=== PATIENT | male | born 1935 | race African-American/Black ===

== ENCOUNTER 2017-12-09 19:51 | Inpatient (IN) | payer MEDICARE, MEDICAID ==
[~2017-12-09] VITALS: Ht 142.2 cm; Wt 54.9 kg
[~2017-12-09 19:51] MED LIST: ASPI-495 PO; ATOR10TA PO; CLON0.5T PO; DONE10TA14 PO; HALO0.5T4 PO; LEVE250T2 PO; MEMA5TAB PO; PIPE3.377 IV; TYL2T PO; VALS40TA4 PO
--- NOTE | 2017-12-09 20:00 | NUR ---
82 YO MALE BB AMB[facility]ANCE. PATIENT IS NON VERBAL AT THIS TIME, WITH PURPOSEFUL MOVEMENT NOTED AT THIS TIME. PATIENT WAS GOWNED,PLACED ON REEFER TRUCK DRIVER. SKIN WARM AND DRY, RESP EVEN AND UNLABORED. AWAITING ORDERS FROM PROVIDER, WILL CONTINUE TO XRBPT2X
[2017-12-09] MEDS ORDERED: TRAM50TA2 PO (20:07)
[2017-12-09] MEDS ORDERED: ESCI5TAB PO (20:07)
--- NOTE | 2017-12-09 20:15 | NUR ---
IN AND OUT GAMBOA CATH DONE, URINE SAMPLE OBTAINED AND SENT TO LAB
[2017-12-09] MEDS ORDERED: PIPERACILLIN /TAZOBACTAM 3.375 G VIAL IV ONE (20:17)
[2017-12-09] MEDS ORDERED: ACETAMINOPHEN 650 MG/SUPP.RECT RC ONE ×2 (20:17→20:30)
[2017-12-09] MEDS ORDERED: VANCOMYCIN 1 GM VIAL ONE (20:17)
--- NOTE | 2017-12-09 20:29 | NUR ---
PATIENT TRANSPORTED TO CT VIA GURNEY BY CHAPTER RELATIONS ADMINISTRATOR
[2017-12-09] MEDS ORDERED: VANCOMYCIN 1 GM in IV D5W 250 ML IV ONE (20:30)
[2017-12-09] MEDS ORDERED: IV NS 0.9% 1,000 ML BAG IV ONE (20:30)
[2017-12-09] MEDS ORDERED: PIPERACILLIN /TAZOBACTAM 3.375 G in IV D5W 50 ML IV ONE (20:30)
--- NOTE | 2017-12-09 20:32 | NUR ---
MEDICATED PT ORDERED
[2017-12-09 20:38] LABS: CARBON DIOXIDE 29 mmol/L (21-32); CHLORIDE 103 mmol/L (98-107); CREATININE 0.7 mg/dL (0.6-1.3); GLUCOSE 113 mg/dL (74-106); POTASSIUM 3.8 mmol/L (3.5-5.1); SODIUM SERUM 138 mmol/L (136-145); UREA NITROGEN, BLOOD 15 mg/dL (7-18)
[2017-12-09 20:40] LABS: INR 0.96 (0.85-1.15)
[2017-12-09 20:40] LABS: APPEARANCE,URINE SL CLOUDY (CLEAR); BILIRUBIN,URINE NEGATIVE (NEGATIVE); BLOOD, URINE NEGATIVE Ery/uL (NEGATIVE); COLOR,URINE YELLOW (YELLOW); KETONES,URINE NEGATIVE (NEGATIVE); LEUKOCYTE ESTERASE ,URINE NEGATIVE (NEGATIVE); NITRITE, URINE NEGATIVE (NEGATIVE); PH,URINE 6.5 (5.0-8.0); PROTEIN,URINE NEGATIVE (NEGATIVE); UGLUCOSE NEGATIVE (NEGATIVE)
[2017-12-09 20:43] LABS: ALANINE AMINOTRANSFERASE 16 U/L (12-78); ALBUMIN 3.2 g/dL (3.4-5.0); ALKALINE PHOSPHATASE 60 U/L (46-116); ASPARTATE AMINOTRANSFERASE 13 U/L (15-37); BILIRUBIN,DIRECT 0.1 mg/dL (0.0-0.2); BILIRUBIN,TOTAL 0.4 mg/dL (0.2-1.0); TOTAL PROTEIN, SERUM 7.6 g/dL (6.4-8.2)
[2017-12-09 20:46] LABS: TROPONIN I < 0.017 ng/mL (0.00-0.056)
[2017-12-09 21:03] LABS: BASOPHILS # (AUTO) 0.1 /CMM (0.0-0.2); BASOPHILS % (AUTO) 0.9 % (0.0-2.0); EOSINOPHILS % (AUTO) 5.9 % (0.0-6.0); HEMATOCRIT 37 % (39-51); HEMOGLOBIN 11.9 g/dL (13.5-17.5); LYMPHOCYTES % (AUTO) 26.2 % (20.0-44.0); MEAN CORPUSCULAR HGB CONC 32 g/dl (31.0-36.0); MEAN CORPUSCULAR VOLUME 72 fL (80-96); MONOCYTES # (AUTO) 0.5 /CMM (0.1-1.30); MONOCYTES % (AUTO) 6.5 % (2.0-12.0); NEUTROPHILS # (AUTO) 4.5 /CMM (1.8-8.9); NEUTROPHILS % (AUTO) 60.5 % (43.0-81.0); PLATELET COUNT (AUTO) 231 /CMM (150-450); RDW COEFFICIENT OF VARIATION 16.3 (11.5-15.0); RED BLOOD CELL COUNT(AUTO) 5.19 MIL/uL (4.5-6.0); WHITE BLOOD COUNT (AUTO) 7.4 K/uL (4.3-11.0)
--- NOTE | 2017-12-09 21:06 | NUR ---
CALLED NURSING SUP. FOR TELE BED
[2017-12-09 21:23] LABS: BACTERIA,URINE Many /HPF (None Seen); RBC,URINE NONE SEEN /HPF (0-2); SQUAMOUS EPITHELIAL CELL,UR Few /HPF (None Seen)
[2017-12-09 21:30] LABS: BAND % (MANUAL) 1 % (0.0-5.0); BASOPHILS % (MANUAL) 0 % (0.0-2.0); EOSINOPHILS % (MANUAL) 5 % (0-4); LYMPHOCYTES % (MANUAL) 33 % (16-48); MONOCYTES % (MANUAL) 7 % (0-11.0); NEUTROPHILS % (MANUAL) 54 (42-76)
--- NOTE | 2017-12-09 21:44 | NUR ---
TRANSPORTED PT TO TELE BED WITHOUT INCIDENT
[2017-12-09] MEDS ORDERED: IV NS 0.9% 1,000 ML IV PRN (21:50)
[2017-12-09 22:00] VITALS: BP 178/94
[2017-12-09] MEDS ORDERED: ACETAMINOPHEN 325 MG TABLET PO PRN (22:00)
[2017-12-09] MEDS ORDERED: MAGNESIUM HYDROXIDE 30 ML UDC PO PRN (22:00)
[2017-12-09] MEDS ORDERED: TEMAZEPAM 7.5 MG CAPSULE PO PRN (22:00)
[2017-12-09] MEDS ORDERED: ENOXAPARIN SODIUM 30 MG/0.3 ML DISP.SYRIN SQ SCH ×2 (22:00→22:26)
[2017-12-09] MEDS ORDERED: HYDROCODONE/APAP 10/325MG 1 EA TABLET PO PRN (22:00)
[2017-12-09] MEDS ORDERED: HYDROCODONE/APAP 5/325MG 1 EACH TABLET PO PRN (22:00)
[2017-12-09] MEDS ORDERED: ONDANSETRON HCL/PF 4 MG/2 ML VIAL IVP PRN (22:00)
[2017-12-09] MEDS ORDERED: MAG HYDROX/AL HYDROX/SIMETH 30 ML UDC PO PRN (22:00)
[2017-12-09 22:30] VITALS: BP 161/81
--- NOTE | 2017-12-09 22:35 | NUR ---
RN OPENING NOTES RECEIVED PATIENT FROM ER WITH DX OF ACUTE ENCEPHALOPATHY AND FACIAL CELLULITIS, ALERT AND ORIENTED X1, CONFUSED, ABLE TO ANSWER SIMPLE QUESTIONS, NO SOB, ON ROOM AIR, SPO2 98%, ON AUSCULTATION, LUNG SOUNDS ARE CLEAR, DENIES ANY PAIN AT THIS TIME, ABDOMEN SOFT AND NON-TENDER, BOWEL SOUNDS TO ALL QUADRANTS, UNABLE TO DRINK USING STRAW, PER HX HAS DYSPHAGIA, ORDERED ST EVAL, CRUSHED MEDS FOR PRECAUTION, SKIN ASSESSMENT IS NEGATIVE, EXCEPT FOR RIGHT EYEBROW LACERATION WITH STITCHES AND NOSE LACERATION WITH STITCHES, NO BLEEDING ON BOTH, RIGHT WRIST PERIPHERAL LINE IS PATENT AND INFUSING SELL, INCONTINENT OF BOWEL AND BLADDER, VOIDING WITHOUT DIFFICULTY, WITH PERIODS OF CONFUSION. KEPT SAFE AND COMFORTABLE, CALL LIGHT WITHIN REACH.
[2017-12-10] VITALS: BP 129/58
[2017-12-10] MEDS ORDERED: TRAMADOL HCL 50 MG TABLET PO PRN
[2017-12-10] MEDS ORDERED: ACETAMINOPHEN 325 MG TABLET PO PRN
[2017-12-10] MEDS: VALSARTAN 40 MG TABLET PO SCH ×2 (00:59→23:12)
[2017-12-10] MEDS: ASPIRIN EC 81 MG TABLET.DR PO SCH ×2 (01:00→23:12)
[2017-12-10] MEDS ORDERED: PIPERACILLIN /TAZOBACTAM 3.375 G VIAL IV ONE (05:06)
[2017-12-10] MEDS: PIPERACILLIN /TAZOBACTAM 3.375 G in IV D5W 50 ML IV SCH ×4 (05:18→23:12)
--- NOTE | 2017-12-10 07:01 | NUR ---
RN NOTES PATIENT IS ALERT AND AWAKE, WITH EPISODES OF CONFUSION, ABLE TO ANSWER SIMPLE QUESTIONS, NO COMPLAIN OF PAIN, NO DISTRESS, SP02 AT ROOM AIR 97%, V/S WNL, INCONTINENT OF BOWEL AND BLADDER, S/P FALL WITH LACERATION TO RIGHT EYEBROW AND NOSE, ALL DUE MEDICATIONS GIVEN, CALL LIGHT WITHIN REACH.
[2017-12-10 07:12] LABS: BASOPHILS # (AUTO) 0.1 /CMM (0.0-0.2); BASOPHILS % (AUTO) 0.8 % (0.0-2.0); EOSINOPHILS % (AUTO) 4.9 % (0.0-6.0); HEMATOCRIT 38 % (39-51); HEMOGLOBIN 11.9 g/dL (13.5-17.5); LYMPHOCYTES # (AUTO) 1.8 /CMM (0.8-4.8); LYMPHOCYTES % (AUTO) 17.8 % (20.0-44.0); MEAN CORPUSCULAR HGB CONC 31 g/dl (31.0-36.0); MEAN CORPUSCULAR VOLUME 73 fL (80-96); MONOCYTES # (AUTO) 0.5 /CMM (0.1-1.30); MONOCYTES % (AUTO) 5.4 % (2.0-12.0); NEUTROPHILS % (AUTO) 71.1 % (43.0-81.0); PLATELET COUNT (AUTO) 228 /CMM (150-450); RDW COEFFICIENT OF VARIATION 16.3 (11.5-15.0); RED BLOOD CELL COUNT(AUTO) 5.21 MIL/uL (4.5-6.0); WHITE BLOOD COUNT (AUTO) 9.9 K/uL (4.3-11.0)
--- NOTE | 2017-12-10 07:25 | NUR ---
MS RN OPENING NOTES RECEIVED PATIENT AWAKE IN BED IN NO ACUTE SIGNS OF DISTRESS. A/O X1-2. NO SIGNS OF PAIN LIKE FACIAL GRIMACES OR RESTLESSNESS OBSERVED AT THIS TIME. ON ROOM AIR, TOLERATING WELL WITH NO SOB NOTED. IV ACCESS ON RIGHT WRIST INTACT AND PATENT WITH IVF OF NS @ 75ML/HR INFUSING , NO SIGNS OF INFILTRATION NOTED. BED IN LOW/LOCKED POSITION WITH SIDE RAILS UP APPROPRIATE. CALL LIGHT WITHIN REACH. ALL SAFETY MEASURES MAINTAINED. WILL CONTINUE TO MONITOR PT ACCORDINGLY..
[2017-12-10 07:34] LABS: CALCIUM, SERUM 8.4 mg/dL (8.5-10.1); CARBON DIOXIDE 31 mmol/L (21-32); CHLORIDE 109 mmol/L (98-107); CREATININE 0.8 mg/dL (0.6-1.3); GLUCOSE 101 mg/dL (74-106); MAGNESIUM 2.2 mg/dL (1.8-2.4); PHOSPHORUS 3.1 mg/dL (2.5-4.9); POTASSIUM 4.1 mmol/L (3.5-5.1); SODIUM SERUM 148 mmol/L (136-145); UREA NITROGEN, BLOOD 10 mg/dL (7-18)
[2017-12-10 07:41] LABS: CHOLESTEROL 127 mg/dL (<200); HDL CHOLESTEROL 50 mg/dL (40-60); LDL 79 mg/dL (0-99); TRIGLYCERIDES 44 mg/dL (30-150)
[2017-12-10] MEDS ORDERED: FEE PK DOSING 1 MIN EA MC ONE (07:57)
[2017-12-10 08:00] VITALS: BP 156/80
[2017-12-10] MEDS: ESCITALOPRAM OXALATE (10 MG) 10 MG TABLET PO SCH (08:13)
[2017-12-10] MEDS: PANTOPRAZOLE 40 MG TABLET.DR PO SCH (08:14)
[2017-12-10] MEDS: LEVETIRACETAM (250 MG) 250 MG TABLET PO SCH ×2 (08:14→16:30)
[2017-12-10] MEDS: MEMANTINE HCL 5 MG TABLET PO SCH ×2 (08:14→16:30)
[2017-12-10] MEDS: VANCOMYCIN 500 MG in IV NS 0.9% 100 ML IV SCH ×2 (08:27→21:10)
[2017-12-10] MEDS ORDERED: ENOXAPARIN SODIUM 30 MG/0.3 ML DISP.SYRIN SQ SCH (08:52)
[2017-12-10] MEDS: ENOXAPARIN SODIUM 30 MG/0.3 ML DISP.SYRIN SQ SCH (09:30)
--- NOTE | 2017-12-10 13:12 | NUR ---
RN NOTES IV ACCESS ON RIGHT WRIST DISLODGED WITH MINIMAL BLEEDING NOTED. PRESSURE GAUZE APPLIED AND TAPED. NEW IV LINE INSERTED TO RFA G#22 AND SECURED WITH TAPE. WILL CONTINUE TO MONITOR.
[2017-12-10 16:00] VITALS: BP 158/76
--- NOTE | 2017-12-10 18:38 | NUR ---
MS RN CLOSING NOTES PATIENT IN BED AWAKE, ALERT AND ORIENTED X1-2. VERBALLY RESPONSIVE WITH EPISODES OF CONFUSION AND FORGETFULNESS NOTED. ON ROOM AIR, TOLERATING WELL WITH NO SOB NOTED. IV ACCESS ON RIGHT ARM G#22 INTACT AND PATENT, FLUSHES EASILY. ALL SAFETY MEASURES MAINTAINED. HOB KEPT ELEVATED. BED IN LOW/LOCKED POSITION WITH SIDE RAILS UP APPROPRIATE. CALL LIGHT WITHIN REACH. ALL NEEDS AND CARE PROVIDED WELL. WILL ENDORSE TO BILL RECAPITULATION CLERK NURSE FOR CYNDI.
--- NOTE | 2017-12-10 19:00 | NUR ---
MS RN OPENING NOTE RECEIVE PATIENT IS RESTING IN BED, A/O X 1-2 NO FACIAL GRIMACING NOTED FOR PAIN. NO SOB OR DISTRESS NOTED, CALL LIGHT WITHIN REACH. SAFETY MEASURES IMPLEMENTED. WILL CONTINUE TO MONITOR THROUGHOUT SHIFT.
[2017-12-10 20:00] VITALS: BP 144/76
[2017-12-10] MEDS: ATORVASTATIN 10 MG TABLET PO SCH (21:11)
[2017-12-11] MEDS: PIPERACILLIN /TAZOBACTAM 3.375 G in IV D5W 50 ML IV SCH ×4 (05:16→23:54)
--- NOTE | 2017-12-11 06:25 | NUR ---
MS RN CLOSING NOTES PT COMFORTABLY ASLEEP AND EASILY AWAKEN, TOLERATING ROOM AIR 96% IN STABLE CONDITION. RESPIRATION EVEN AND UNLABORED. KEPT CLEAN AND DRY AND COMFORTABLE, ALL NURSING CARE RENDERED. NEEDS ATTENDED AND ANTICIPATED, GOOD SKIN CARE PROVIDED. REPOSITIONED EVERY 2 HOURS FOR SKIN MANAGEMENT. FREQUENT VISUAL CHECK DONE FOR SAFETY EVERY 2 HOURS. ON LOW BED AT ALL TIMES TO ENSURE SAFETY. SAFE HAZARD FREE ENVIRONMENT PROVIDED. NO COMPLAINS OF PAIN. CALL LIGHT WITHIN EASY TO REACH. WILL ENDORSE NEXT SHIFT CONTINUITY OF CARE.
[2017-12-11 06:59] LABS: CALCIUM, SERUM 8.2 mg/dL (8.5-10.1); CARBON DIOXIDE 30 mmol/L (21-32); CHLORIDE 106 mmol/L (98-107); CREATININE 0.9 mg/dL (0.6-1.3); GLUCOSE 101 mg/dL (74-106); POTASSIUM 3.5 mmol/L (3.5-5.1); SODIUM SERUM 143 mmol/L (136-145); UREA NITROGEN, BLOOD 13 mg/dL (7-18)
[2017-12-11 08:00] VITALS: BP 146/64
[2017-12-11] MEDS: PANTOPRAZOLE 40 MG TABLET.DR PO SCH (08:13)
[2017-12-11] MEDS: LEVETIRACETAM (250 MG) 250 MG TABLET PO SCH ×2 (09:31→17:53)
[2017-12-11] MEDS: ESCITALOPRAM OXALATE (10 MG) 10 MG TABLET PO SCH (09:31)
[2017-12-11] MEDS: MEMANTINE HCL 5 MG TABLET PO SCH ×2 (09:32→17:52)
[2017-12-11] MEDS: VANCOMYCIN 500 MG in IV NS 0.9% 100 ML IV SCH ×2 (09:34→21:07)
[2017-12-11] MEDS: ENOXAPARIN SODIUM 30 MG/0.3 ML DISP.SYRIN SQ SCH (09:44)
[2017-12-11 16:00] VITALS: BP 155/82
[2017-12-11] MEDS: NEOMY SULF/BACITRAC ZN/POLY 15 GM TUBE TP SCH (17:54)
[2017-12-11 18:18] VITALS: BP 140/73
--- NOTE | 2017-12-11 19:10 | NUR ---
RN CLOSING NOTES: PATIENT RESTING IN BED. NONLABORED BREATHING NOTED ON ROOM AIR. NO FACIAL GRIMACING NOTED. PATIENT AOX1, CONFUSED. IV SITE ON RIGHT FA PATIENT AND INTACT. PATIENT AFEBRILE DURING SHIFT. PATIENT TURNED AND REPOSITIONED EVERY 2 HOURS, KEPT CLEAN AND DRY. ASPIRATION AND FALL PRECAUTIONS IMPLEMENTED DURING SHIFT. NO SEIZURES NOTED DURING SHIFT WOUND CARE DONE DURING SHIFT. ENDORSED TO NEXT SHIFT
--- NOTE | 2017-12-11 19:20 | NUR ---
MS RN OPENING NOTES RECEIVED PATIENT AWAKE IN BED, NO ACUTE SIGNS OF DISTRESS. A/O X 1, CONFUSED. NO SIGNS OF PAIN LIKE FACIAL GRIMACES OR RESTLESSNESS OBSERVED AT THIS TIME. ON ROOM AIR, TOLERATING WELL WITH NO SOB NOTED. IV ACCESS ON RIGHT FOREARM, INTACT & PATENT, SL. NO SIGNS OF INFILTRATION NOTED. BED IN LOW/LOCKED POSITION WITH SIDE RAILS UP APPROPRIATE. CALL LIGHT WITHIN REACH. ALL SAFETY MEASURES MAINTAINED. WILL CONTINUE TO MONITOR PT ACCORDINGLY.
[2017-12-11 20:00] VITALS: BP 130/64
[2017-12-11] MEDS: ATORVASTATIN 10 MG TABLET PO SCH (21:32)
[2017-12-11] MEDS: VALSARTAN 40 MG TABLET PO SCH (23:54)
[2017-12-11] MEDS: ASPIRIN EC 81 MG TABLET.DR PO SCH (23:54)
[2017-12-12] MEDS: PIPERACILLIN /TAZOBACTAM 3.375 G in IV D5W 50 ML IV SCH ×3 (05:24→17:05)
--- NOTE | 2017-12-12 06:28 | NUR ---
MS RN CLOSING NOTES PATIENT SLEPT WELL @ NIGHT. NO ACUTE SIGNS OF DISTRESS. A/O X 1, CONFUSED. NO SIGNS OF PAIN LIKE FACIAL GRIMACES OR RESTLESSNESS OBSERVED @ THIS TIME. ON ROOM AIR, TOLERATING WELL WITH NO SOB NOTED. IV ACCESS ON RIGHT FOREARM, INTACT & PATENT, SL. TURNED/REPOSITIONED PER PROTOCOL. KEPT CLEAN & DRY MUCH POSSIBLE. NO SIGNS OF INFILTRATION NOTED. BED IN LOW/LOCKED POSITION WITH SIDE RAILS UP APPROPRIATE. CALL LIGHT WITHIN REACH. ALL SAFETY MEASURES MAINTAINED. WILL ENDORSE TO AM RN FOR CONTINUITY OF CARE.
[2017-12-12 07:43] LABS: BASOPHILS % (AUTO) 0.2 % (0.0-2.0); EOSINOPHILS % (AUTO) 5.5 % (0.0-6.0); HEMATOCRIT 36 % (39-51); HEMOGLOBIN 11.5 g/dL (13.5-17.5); LYMPHOCYTES # (AUTO) 1.4 /CMM (0.8-4.8); LYMPHOCYTES % (AUTO) 16.7 % (20.0-44.0); MEAN CORPUSCULAR HGB CONC 32 g/dl (31.0-36.0); MEAN CORPUSCULAR VOLUME 72 fL (80-96); MONOCYTES # (AUTO) 0.5 /CMM (0.1-1.30); MONOCYTES % (AUTO) 5.8 % (2.0-12.0); NEUTROPHILS % (AUTO) 71.8 % (43.0-81.0); PLATELET COUNT (AUTO) 237 /CMM (150-450); RDW COEFFICIENT OF VARIATION 16.1 (11.5-15.0); RED BLOOD CELL COUNT(AUTO) 4.99 MIL/uL (4.5-6.0); WHITE BLOOD COUNT (AUTO) 8.4 K/uL (4.3-11.0)
[2017-12-12 08:00] VITALS: BP 143/69
[2017-12-12] MEDS: PANTOPRAZOLE 40 MG TABLET.DR PO SCH (08:00)
[2017-12-12 08:12] LABS: CARBON DIOXIDE 28 mmol/L (21-32); CHLORIDE 107 mmol/L (98-107); CREATININE 0.9 mg/dL (0.6-1.3); GLUCOSE 92 mg/dL (74-106); POTASSIUM 3.3 mmol/L (3.5-5.1); SODIUM SERUM 142 mmol/L (136-145); UREA NITROGEN, BLOOD 16 mg/dL (7-18)
--- NOTE | 2017-12-12 08:42 | NUR ---
RN NOTES: PATIENT RESTING IN BED. NONLABORED BREATHING NOTED ON ROOM AIR. NO FACIAL GRIMACING NOTED. PATIENT AOX1, CONFUSED. IV SITE ON RIGHT FA PATIENT AND INTACT. PATIENT AFEBRILE DURING SHIFT. PATIENT TURNED AND REPOSITIONED EVERY 2 HOURS, KEPT CLEAN AND DRY. ASPIRATION AND FALL PRECAUTIONS IMPLEMENTED DURING SHIFT. ENDORSED TO SARAH TELLO FOR CONTINUATION OF CARE
--- NOTE | 2017-12-12 08:45 | NUR ---
MS RN NOTE RECEIVED REPORT FROM ELISHA SCHOFIELD. WILL CONTINUE CONTINUITY OF CARE FOR PATIENT. PATIENT RESTING AT THIS TIME. WILL CONTINUE TO MONITOR.
[2017-12-12] MEDS: ESCITALOPRAM OXALATE (10 MG) 10 MG TABLET PO SCH (09:01)
[2017-12-12] MEDS: VANCOMYCIN 500 MG in IV NS 0.9% 100 ML IV SCH (09:01)
[2017-12-12] MEDS: LEVETIRACETAM (250 MG) 250 MG TABLET PO SCH ×2 (09:01→17:05)
[2017-12-12] MEDS: MEMANTINE HCL 5 MG TABLET PO SCH ×2 (09:02→17:05)
[2017-12-12] MEDS: ENOXAPARIN SODIUM 30 MG/0.3 ML DISP.SYRIN SQ SCH (09:04)
[2017-12-12] MEDS: NEOMY SULF/BACITRAC ZN/POLY 15 GM TUBE TP SCH (09:05)
[2017-12-12] MEDS ORDERED: POTASSIUM CHLORIDE 20 MEQ TAB.PRT.SR PO SCH (10:30)
[2017-12-12 15:54] VITALS: BP 137/72
[2017-12-12] MEDS ORDERED: LACTOBACILLUS RHAMNOSUS GG 1 EACH CAP.SPRINK PO SCH (17:00)
--- NOTE | 2017-12-12 18:36 | NUR ---
MS RN CLOSING NOTE PATIENT IS RESTING COMFORTABLE AT THIS TIME IN BED LOCKED IN LOWEST POSITION. ALL DUE MEDICATIONS GIVEN ORDERED. ALL NURSING CARE NEEDS ATTENDED TO NEEDED. . ABLE TO COMMUNICATE NEEDS. WOUND VAC INTACT RUNNING AT 125 MMHG. NO PAIN AT THIS TIME. NO SOB OR DISTRESS NOTED. LABS IN AM. WILL ENDORSE TO AIRCRAFT ENGINE MECHANIC OVERHAUL NURSE FOR CYNDI DISCHARGE NOTE: REPORT GIVEN TO GÉNESIS RN FOCUSER AT [facility]- . ALL DISCHARGE INSTRUCTIONS GIVEN TO RN, ALL INSTRUCTIONS RECEIVED BACK. PRESCRIPTION TO BE GIVEN TO RN FOCUSER FOR ANTIBIOTIC THERAPY x14 DAYS. INFORMED KELSY-SISTER AND DOROTHY-SON ABOUT PATIENT TRANSFER. BELONGINGS LIST ACCOUNTED FOR AND SKIN DOCUMENTATION IN CHART. WILL ENDORSE TO AIRCRAFT ENGINE MECHANIC OVERHAUL NURSE FOR CYNDI
--- NOTE | 2017-12-12 19:35 | NUR ---
MS RN OPENING NOTES RECEIVED PATIENT AWAKE IN BED, NO ACUTE SIGNS OF DISTRESS. A/O X 1, CONFUSED. NO SIGNS OF PAIN LIKE FACIAL GRIMACES OR RESTLESSNESS OBSERVED AT THIS TIME. ON ROOM AIR, TOLERATING WELL WITH NO SOB NOTED. PT TO BE PICKED UP BY TRANSPORTATION, [facility] PER AM RN REPORT. REPORT WAS GIVEN TO GÉNESIS @[facility] BY AM RN. VSS 133/73, 74, 18, 98.3, 97 % @ RA. HAD BM X 1 TODAY. KEPT THE PT CLEAN & DRY. BED IN LOW/LOCKED POSITION WITH SIDE RAILS UP APPROPRIATE. CALL LIGHT WITHIN REACH. ALL SAFETY MEASURES MAINTAINED. WILL CONTINUE TO MONITOR PT ACCORDINGLY.
[2017-12-12 19:40] VITALS: BP 133/73
--- NOTE | 2017-12-12 20:20 | NUR ---
DISCHARGE NOTE TRANSPORTATION ARRIVED, PT IN STABLE CONDITION, VS STABLE @ THIS TIME, CHECKED BY AMBULANCE PERSON. IV CATH & ID BAND REMOVED. REPORT & ALL INSTRUCTIONS GIVEN TO EMT'S. BELONGING LIST REVIEWED BY YASMINE. AWARE. PT DISCHARGED IN STABLE CONDITION TO SNF. FAMILY WAS MADE AWARE BY AM SHIFT RN.
== END 2017-12-12 20:20 | DRG 602 ==
LOC: ER 19:53 → TELE 21:42 → MED 12-10 06:24
PROVIDERS: ADMIT Nurse Practitioner Acute Care; ATTEND Nurse Practitioner Acute Care
DX: L03.211 Cellulitis of face (principal); R53.2 Functional quadriplegia; G92 Toxic encephalopathy; E44.0 Moderate protein-calorie malnutrition; I50.32 Chronic diastolic (congestive) heart failure; D68.59 Other primary thrombophilia; E87.0 Hyperosmolality and hypernatremia; I11.0 Hypertensive heart disease with heart failure; D63.8 Anemia in other chronic diseases classified elsewhere; F03.90 Unspecified dementia, unspecified severity, without behavioral disturbance, psychotic disturbance, mood disturbance, and anxiety; I70.90 Unspecified atherosclerosis; G40.909 Epilepsy, unspecified, not intractable, without status epilepticus; E78.00 Pure hypercholesterolemia, unspecified; E66.9 Obesity, unspecified; Z68.27 Body mass index [BMI] 27.0-27.9, adult; N40.0 Benign prostatic hyperplasia without lower urinary tract symptoms; K21.9 Gastro-esophageal reflux disease without esophagitis; F32.9 Major depressive disorder, single episode, unspecified; Z87.440 Personal history of urinary (tract) infections; Z86.73 Personal history of transient ischemic attack (TIA), and cerebral infarction without residual deficits; I25.10 Atherosclerotic heart disease of native coronary artery without angina pectoris; F07.81 Postconcussional syndrome
CPT/HCPCS: 36415; 70450-TC; 71045-TC; 80048-TC; 80061-TC; 80076-TC; 80202-TC; 81000-TC; 83605-TC; 83735-TC; 84100-TC; 84484-TC; 85025-TC; 85730-TC; 87040-TC; 87081-TC; 87086-TC; 92521; A4606; J1650; J2543; J3370; J7030; J7060; Z7610

== ENCOUNTER 2018-06-15 19:14 | Emergency (ER) | payer MEDICARE, MEDICAID ==
[~2018-06-15] VITALS: Ht 157.5 cm; Wt 57.2 kg
[~2018-06-15 19:14] MED LIST changes: -CLON0.5T PO; -DONE10TA14 PO; +ESCI5TAB PO; -HALO0.5T4 PO; -PIPE3.377 IV; +TRAM50TA2 PO
--- NOTE | 2018-06-15 19:20 | NUR ---
PT [id number] FROM [facility], PRESENTS W/ L EYEBROW LACERATION S/P SLID OFF WHEELCHAIR, PT AAOX1-2, FOLLOWS SIMPLE DIRECTIONS, DENIES PAIN OR DISCOMFORT, PUPILS EQUAL AND REACTIVE TO LIGHT, NO C/O DIZZINESS, NO N/V NOTED, RESPIRATIONS EVEN AND UNLABORED, NO SOB, VSS, AWAITING MD TABARES
[2018-06-15] MEDS ORDERED: TDAP [DIPH/PERTUSSIS/TET] 0.5 ML VIAL IM ONE ×2 (20:00→20:01)
[2018-06-15] MEDS ORDERED: LIDOCAINE 1%-EPI 1:100,000 20 ML VIAL ONE (20:30)
--- NOTE | 2018-06-15 21:40 | NUR ---
DR WARD AT BEDSIDE FOR SUTURE ON LEFT EYEBROW LAC
--- NOTE | 2018-06-15 21:53 | NUR ---
CALLED [facility] FOR TRANSPORT ETA OF [phone] WAS GIVEN. TRIP#[id number]
--- NOTE | 2018-06-15 22:09 | NUR ---
CALLED [facility] FOR REPORT, SPOKE TO RN DOOR AND ARRIVAL ATTENDANT JOEL
[2018-06-15] MEDS ORDERED: ACETAMINOPHEN ES 500 MG TABLET ONE (23:38)
[2018-06-15] MEDS ORDERED: CLONIDINE HCL 0.1 MG TABLET ONE (23:51)
[2018-06-16] MEDS ORDERED: CLONIDINE HCL 0.1 MG TABLET PO ONE
[2018-06-16] MEDS ORDERED: ACETAMINOPHEN ES 500 MG TABLET PO ONE
[2018-06-16 00:11] VITALS: BP 176/78
--- NOTE | 2018-06-16 00:22 | NUR ---
PT LEFT VIA AMBULANCE VIA GURNEY WITH 2 HEALTH INSPECTOR. VSS, RESP EVEN AND UNLABORED, NAD NOTED, ALL BELONGING AND PAPERWORK WITH PRIVATE AMBULANCE STAFF
== END 2018-06-16 00:25 ==
LOC: ER 19:17
DX: S01.112A Laceration without foreign body of left eyelid and periocular area, initial encounter (principal); G40.909 Epilepsy, unspecified, not intractable, without status epilepticus; I10 Essential (primary) hypertension; E11.9 Type 2 diabetes mellitus without complications; E78.5 Hyperlipidemia, unspecified; Z79.82 Long term (current) use of aspirin; Z79.899 Other long term (current) drug therapy; W01.0XXA Fall on same level from slipping, tripping and stumbling without subsequent striking against object, initial encounter; W05.0XXA Fall from non-moving wheelchair, initial encounter; Y93.89 Activity, other specified; Y92.89 Other specified places as the place of occurrence of the external cause; Y99.8 Other external cause status
CPT/HCPCS: 70450-TC; 72125-TC; 82962-TC; 90715; A4606; A6402; J3490; Z7610

== ENCOUNTER 2019-01-02 23:46 | Inpatient (IN) | payer MEDICARE, MEDICAID ==
[~2019-01-02] VITALS: Ht 165.1 cm; Wt 53.1 kg
--- NOTE | 2019-01-02 23:50 | NUR ---
PT PHOEBE FROM [facility] C/C WEAKNESS. SENT BY MD FOR PNA FURTHER EVAL, PT IS AAOX0, BUT RESPOND TO VOICE, NOT IN RESPIRATORY DISTRESS, HOOKED TO MONITOR, KEPT RESTED AND COMFORTABLE, WILL CONTINUE TO MONITOR.
--- NOTE | 2019-01-03 00:03 | NUR ---
SEEN AND EXAMINED BY DR. WALTON.
--- NOTE | 2019-01-03 00:05 | NUR ---
IV LINE ESTABLISHED, BLOOD DRAWNED AND SENT TO LAB.
[2019-01-03 00:18] LABS: MONOCYTES # (AUTO) 0.5 /CMM (0.1-1.30)
[2019-01-03 00:24] LABS: BASOPHILS % (AUTO) 0.2 % (0.0-2.0); EOSINOPHILS % (AUTO) 1.1 % (0.0-6.0); HEMATOCRIT 37 % (39-51); HEMOGLOBIN 11.6 g/dL (13.5-17.5); LYMPHOCYTES # (AUTO) 1.6 /CMM (0.8-4.8); LYMPHOCYTES % (AUTO) 10.3 % (20.0-44.0); MEAN CORPUSCULAR HGB CONC 31 g/dl (31.0-36.0); MEAN CORPUSCULAR VOLUME 71 fL (80-96); MONOCYTES % (AUTO) 3.4 % (2.0-12.0); NEUTROPHILS # (AUTO) 13.2 /CMM (1.8-8.9); PLATELET COUNT (AUTO) 243 /CMM (150-450); RED BLOOD CELL COUNT(AUTO) 5.24 MIL/uL (4.5-6.0); WHITE BLOOD COUNT (AUTO) 15.6 K/uL (4.3-11.0)
[2019-01-03 00:26] LABS: CALCIUM, SERUM 8.4 mg/dL (8.5-10.1); CARBON DIOXIDE 33 mmol/L (21-32); CHLORIDE 106 mmol/L (98-107); CREATININE 0.9 mg/dL (0.6-1.3); GLUCOSE 109 mg/dL (74-106); SODIUM SERUM 144 mmol/L (136-145); UREA NITROGEN, BLOOD 21 mg/dL (7-18)
--- NOTE | 2019-01-03 00:28 | NUR ---
FOLLEY CATH INSERTED, URINE SAMPLE COLLECTED AND SENT TO LAB
[2019-01-03 00:32] LABS: ALANINE AMINOTRANSFERASE 16 U/L (12-78); ALBUMIN 3.1 g/dL (3.4-5.0); ALKALINE PHOSPHATASE 74 U/L (46-116); ASPARTATE AMINOTRANSFERASE 11 U/L (15-37); BILIRUBIN,DIRECT 0.1 mg/dL (0.0-0.2); BILIRUBIN,TOTAL 0.4 mg/dL (0.2-1.0); TOTAL PROTEIN, SERUM 7.3 g/dL (6.4-8.2)
--- NOTE | 2019-01-03 00:33 | NUR ---
FOREST RESOURCES PROFESSOR AT BEDSIDE FOR XRAY.
[2019-01-03 00:35] LABS: APPEARANCE,URINE Clear (CLEAR); BILIRUBIN,URINE Negative (NEGATIVE); BLOOD, URINE Moderate Ery/uL (NEGATIVE); COLOR,URINE Dark (YELLOW); KETONES,URINE Trace (NEGATIVE); LEUKOCYTE ESTERASE ,URINE Negative (NEGATIVE); NITRITE, URINE Negative (NEGATIVE); PROTEIN,URINE Trace mg/dl (NEGATIVE); UGLUCOSE Negative (NEGATIVE)
[2019-01-03] MEDS ORDERED: Magnesium 1GM/D5W 100ML PREMIX 100 ML IV SCH (01:00)
[2019-01-03] MEDS: POTASSIUM CL. PREMIX PERIPHER. 50 ML IV SCH ×4 (01:10→06:02)
[2019-01-03 01:23] LABS: EOSINOPHILS % (MANUAL) 2 % (0-4); LYMPHOCYTES % (MANUAL) 7 % (16-48); MONOCYTES % (MANUAL) 6 % (0-11.0); NEUTROPHILS % (MANUAL) 85 (42-76)
[2019-01-03] MEDS ORDERED: VANCOMYCIN 1 GM in IV D5W 250 ML IV ONE (01:30)
[2019-01-03] MEDS ORDERED: PIPERACILLIN /TAZOBACTAM 3.375 G in IV D5W 50 ML IV ONE (01:30)
[2019-01-03] MEDS ORDERED: PIPERACILLIN /TAZOBACTAM 3.375 G VIAL IV ONE (01:37)
[2019-01-03] MEDS ORDERED: POTASSIUM CL. PREMIX PERIPHER. 200 ML ONE (01:37)
[2019-01-03] MEDS ORDERED: VANCOMYCIN 1 GM VIAL ONE (01:37)
[2019-01-03] MEDS ORDERED: Magnesium 1GM/D5W 100ML PREMIX 100 ML IV ONE (01:37)
--- NOTE | 2019-01-03 01:57 | NUR ---
NURSING SUP GAVE 109-1.
[2019-01-03] MEDS ORDERED: Z GUARD REMEDY 2 OZ OINT TP PRN (02:00)
[2019-01-03] MEDS ORDERED: ACETAMINOPHEN 325 MG TABLET PO PRN (02:00)
[2019-01-03] MEDS ORDERED: TRAMADOL HCL 50 MG TABLET PO PRN (02:00)
[2019-01-03] MEDS ORDERED: ONDANSETRON HCL/PF 4 MG/2 ML VIAL IVP PRN (02:00)
[2019-01-03] MEDS ORDERED: MAGNESIUM HYDROXIDE 30 ML UDC PO PRN (02:00)
[2019-01-03] MEDS ORDERED: HYDROCODONE/APAP 5/325MG 1 EACH TABLET PO PRN (02:00)
[2019-01-03] MEDS ORDERED: MAG HYDROX/AL HYDROX/SIMETH 30 ML UDC PO PRN (02:00)
--- NOTE | 2019-01-03 02:15 | NUR ---
REPORT GIVEN TO ELISHA GOMEZ FOR CYNDI.
[2019-01-03 02:46] LABS: BACTERIA,URINE Few /HPF (None Seen); RBC,URINE 81-100 /HPF (0-2); SQUAMOUS EPITHELIAL CELL,UR Few /HPF (None Seen)
[2019-01-03 03:00] VITALS: BP 165/72
--- NOTE | 2019-01-03 03:00 | NUR ---
MS/RN OPENING NOTES PT RECEIVED FROM ER VIA [place]FF[place]. NON VERBAL. ON 2L O2 VIA NC, BREATHING EVEN AND UNLABORED. NO S/S OF SOB OR PAIN AT THIS TIME. IV TO LFA PATENT AND INTACT CURRENTLY RUNNING FIRST BAG OF POTASSIUM AND VANCOMYCIN. NEED TO GIVE 3 ADDITIONAL BAGS OF POTASSIUM. BED IN LOW/LOCKED POSITION WITH CALL LIGHT IN REACH. HOB ELEVATED. BED RAILS UPX3. AND BED ALARM ON FOR SAFETY. WILL CONTINUE TO MONITOR
--- NOTE | 2019-01-03 03:35 | NUR ---
MS/RN NOTES 2ND BAG OF POTASSIUM OUT OF 4 HUNG
[2019-01-03] MEDS: ASPIRIN EC 81 MG TABLET.DR PO SCH (03:53)
[2019-01-03 04:00] VITALS: BP 154/77
--- NOTE | 2019-01-03 04:47 | NUR ---
MS/RN NOTES 3/4 BAG OF POTASSIUM HUNG
--- NOTE | 2019-01-03 06:03 | NUR ---
MS/RN NOTES BAG 09/29 HUNG Addendum: 01/03/19 at 0603 by JASON DORMAN RN OF POTASSIUM
[2019-01-03] MEDS ORDERED: FEE PK DOSING 1 MIN EA MC ONE (07:26)
--- NOTE | 2019-01-03 07:37 | NUR ---
MS/RN CLOSING NOTES PT RESTING COMFORTABLY IN BED. NON VERBAL. RESPONSIVE TO NAME. ON 2L O2 VIA NC, BREATHING EVEN AND UNLABORED. NO S/S OF SOB OR PAIN AT THIS TIME. IV TO LFA PATENT AND INTACT. NO SIGNIFICANT CHANGES OVERNIGHT. HOB ELEVATED. ALL DUE MEDS GIVEN. BED IN LOW/LOCKED POSITION WITH CALL LIGHT IN REACH. BED RAILS UPX3. AND BED ALARM ON FOR SAFETY. ENDORSED TO DAY SHIFT RN CYNDI.
--- NOTE | 2019-01-03 07:45 | NUR ---
RN NOTE: PATIENT RECEIVED ALERT AWAKE ORIENTED TO NAME. OPEN EYES TO VERBAL & TACTILE STIMULI, NON VERBAL. ON 2 LPM O2 VIA NC, NO BREATHING DISTRESS NOTED. NO S/S OF PAIN & DISTRESS NOTED. SAFETY MEASURES OBSERVED. HOB ELEVATED. CONTINUE WITH PLAN OF CARE.
[2019-01-03 08:00] VITALS: BP 158/76
[2019-01-03] MEDS: PIPERACILLIN /TAZOBACTAM 3.375 G in IV D5W 50 ML IV SCH ×3 (09:17→20:50)
[2019-01-03] MEDS: VALSARTAN 40 MG TABLET PO SCH (09:17)
[2019-01-03] MEDS: ESCITALOPRAM OXALATE (10 MG) 10 MG TABLET PO SCH (09:18)
[2019-01-03] MEDS: LEVETIRACETAM (250 MG) 250 MG TABLET PO SCH ×2 (09:18→17:41)
[2019-01-03] MEDS: MEMANTINE HCL 5 MG TABLET PO SCH ×2 (09:18→17:41)
[2019-01-03] MEDS: ENOXAPARIN SODIUM 40 MG/0.4 ML DISP.SYRIN SQ SCH (09:19)
[2019-01-03 16:00] VITALS: BP 101/65
--- NOTE | 2019-01-03 16:36 | NUR ---
RN NOTE: NO SIGNIFICANT CHANGES NOTED DURING SHIFT. CONTINUE WITH IV ATB THERAPY ORDERED. ON 2LPM O2 NC, NO BREATHING DISTRESS NOTED. Addendum: 01/03/19 at 1638 by SALINAS JACOB RN CONTINUE WITH PLAN OF CARE.
--- NOTE | 2019-01-03 19:05 | NUR ---
RN M/S NOTE PATIENT IS AOX1, NONVERBAL, RESTING WITH HOB ELEVATED ON 2L O2 VIA NC, NO PAIN NOTED VIA FLACC, NO S/SX OF RESPIRATORY OR CARDIAC DISTRESS, SKIN KEPT CLEAN AND DRY, LFA #18G SL, PATENT FLUSHING WELL, SKIN KEPT CLEAN AND DRY, SAFETY MAINTAINED AT ALL TIMES, BED IN LOW, LOCKED POSITION, CALL LIGHT WITHIN REACH, WILL CONTINUE TO MONITOR FOR ANY CHANGES IN CONDITION.
[2019-01-03 20:00] VITALS: BP 126/62
[2019-01-03] MEDS: VANCOMYCIN 1 GM in IV D5W 250 ML IV SCH (21:25)
[2019-01-03] MEDS: ATORVASTATIN 10 MG TABLET PO SCH (21:25)
[2019-01-04] MEDS: ASPIRIN EC 81 MG TABLET.DR PO SCH ×2 (02:29→09:54)
[2019-01-04] MEDS: PIPERACILLIN /TAZOBACTAM 3.375 G in IV D5W 50 ML IV SCH ×4 (02:29→20:36)
[2019-01-04 04:00] VITALS: BP 110/56
[2019-01-04 08:00] VITALS: BP 179/78
[2019-01-04 08:03] LABS: BASOPHILS # (AUTO) 0.1 /CMM (0.0-0.2); BASOPHILS % (AUTO) 0.9 % (0.0-2.0); EOSINOPHILS % (AUTO) 5.6 % (0.0-6.0); HEMATOCRIT 34 % (39-51); HEMOGLOBIN 10.6 g/dL (13.5-17.5); LYMPHOCYTES # (AUTO) 1.8 /CMM (0.8-4.8); LYMPHOCYTES % (AUTO) 23.8 % (20.0-44.0); MEAN CORPUSCULAR HGB CONC 31 g/dl (31.0-36.0); MEAN CORPUSCULAR VOLUME 69 fL (80-96); MONOCYTES # (AUTO) 0.5 /CMM (0.1-1.30); MONOCYTES % (AUTO) 6.9 % (2.0-12.0); NEUTROPHILS # (AUTO) 4.7 /CMM (1.8-8.9); NEUTROPHILS % (AUTO) 62.8 % (43.0-81.0); PLATELET COUNT (AUTO) 226 /CMM (150-450); WHITE BLOOD COUNT (AUTO) 7.4 K/uL (4.3-11.0)
[2019-01-04 08:17] LABS: CARBON DIOXIDE 31 mmol/L (21-32); CHLORIDE 105 mmol/L (98-107); CREATININE 0.9 mg/dL (0.6-1.3); GLUCOSE 92 mg/dL (74-106); MAGNESIUM 2.3 mg/dL (1.8-2.4); PHOSPHORUS 3.8 mg/dL (2.5-4.9); SODIUM SERUM 142 mmol/L (136-145); UREA NITROGEN, BLOOD 12 mg/dL (7-18)
[2019-01-04 08:28] LABS: SERUM AMMONIA 23 umol/L (11-32)
[2019-01-04 09:17] LABS: IRON, SERUM 28 ug/dl (50-175); TOTAL IRON BINDING CAPACITY 189 ug/dl (250-450)
[2019-01-04 09:31] LABS: CHOLESTEROL 111 mg/dL (<200); HDL CHOLESTEROL 36 mg/dL (40-60); LDL 68 mg/dL (0-99); THYROID STIMULATING HORMONE 1.393 uIU/mL (0.358-3.74); TRIGLYCERIDES 72 mg/dL (30-150)
[2019-01-04] MEDS: ENOXAPARIN SODIUM 40 MG/0.4 ML DISP.SYRIN SQ SCH (09:54)
[2019-01-04] MEDS: ESCITALOPRAM OXALATE (10 MG) 10 MG TABLET PO SCH (09:55)
[2019-01-04] MEDS: MEMANTINE HCL 5 MG TABLET PO SCH ×2 (09:55→17:28)
[2019-01-04] MEDS: VALSARTAN 40 MG TABLET PO SCH (09:55)
[2019-01-04] MEDS: LEVETIRACETAM (250 MG) 250 MG TABLET PO SCH ×2 (09:55→17:28)
[2019-01-04] MEDS: POTASSIUM CHLORIDE 20 MEQ TAB.PRT.SR PO SCH ×3 (11:11→13:04)
[2019-01-04 12:00] VITALS: BP 167/75
[2019-01-04] MEDS: VANCOMYCIN 1 GM in IV D5W 250 ML IV SCH (14:58)
[2019-01-04 16:00] VITALS: BP 155/86
[2019-01-04] MEDS: LACTOBACILLUS RHAMNOSUS GG 1 EACH CAP.SPRINK PO SCH (17:28)
--- NOTE | 2019-01-04 17:48 | NUR ---
CLOSING PT RESTING COMFORTABLY IN BED. NON VERBAL. RESPONSIVE TO NAME. ON 2L O2 VIA NC, BREATHING EVEN AND UNLABORED. NO S/S OF SOB OR PAIN AT THIS TIME. IV TO LFA PATENT AND INTACT. NO SIGNIFICANT CHANGES OVERNIGHT. HOB ELEVATED. ALL DUE MEDS GIVEN. BED IN LOW/LOCKED POSITION WITH CALL LIGHT IN REACH. BED RAILS UPX3. AND BED ALARM ON FOR SAFETY. ENDORSED TO PM SHIFT RN FOR CONTINUITY OF CARE.
--- NOTE | 2019-01-04 19:30 | NUR ---
RN Notes Received patient awake, alert, non-verbal. HOB elevated with O2 inhalation via NC at 2LPM tolerated well with good saturation. Breathing regular and unlabored. No signs and symptoms of pain or discomfort noted. IV access on left forearm patent and intact. Safety measures and fall precaution in place with call light with in reach. Kapt patient clean and dry. Will continue to monitor patient.
[2019-01-04 22:00] VITALS: BP 158/75
[2019-01-04] MEDS: ATORVASTATIN 10 MG TABLET PO SCH (22:35)
[2019-01-05] MEDS: PIPERACILLIN /TAZOBACTAM 3.375 G in IV D5W 50 ML IV SCH ×4 (02:42→21:10)
[2019-01-05 04:00] VITALS: BP 148/85
--- NOTE | 2019-01-05 06:29 | NUR ---
RN Notes Patient stable overnight, afebrile. No signs on SOB, pain and discomfort. Kept clean and dry, turned and repositioned per protocol. All due meds given and tolerated well. Fall precaution observed. No significant change in condition noted. Will continue to monitor and will endorse accordingly.
--- NOTE | 2019-01-05 07:30 | NUR ---
RN AM SHIFT NOTE PATIENT ALERT BUT NONVERBAL. SIDE RAILS UP, IV PATENT AND INTACT. NO SIGNS OF DISTRRES. CALL LIGHT [id number] REACH. BLOOD PRESSURE ELEVATED, SPOKE WITH DR MONTALVO ORDERS FOR MEDICATIONS PRN. WILL CONTINUE TO [facility]. PENDING AM LABS AND DONATO KNIGHT.
[2019-01-05] MEDS: LEVETIRACETAM (250 MG) 250 MG TABLET PO SCH ×2 (08:24→17:12)
[2019-01-05] MEDS: LACTOBACILLUS RHAMNOSUS GG 1 EACH CAP.SPRINK PO SCH ×2 (08:24→17:07)
[2019-01-05] MEDS: ESCITALOPRAM OXALATE (10 MG) 10 MG TABLET PO SCH (08:24)
[2019-01-05] MEDS: MEMANTINE HCL 5 MG TABLET PO SCH ×2 (08:24→17:07)
[2019-01-05] MEDS: VALSARTAN 40 MG TABLET PO SCH (08:24)
[2019-01-05] MEDS: ENOXAPARIN SODIUM 40 MG/0.4 ML DISP.SYRIN SQ SCH (08:26)
[2019-01-05] MEDS ORDERED: hydrALAZINE HCL IV 20 MG VIAL IV PRN (08:30)
[2019-01-05 09:01] LABS: CALCIUM, SERUM 8.1 mg/dL (8.5-10.1); CARBON DIOXIDE 31 mmol/L (21-32); CHLORIDE 104 mmol/L (98-107); CREATININE 0.9 mg/dL (0.6-1.3); GLUCOSE 90 mg/dL (74-106); POTASSIUM 2.9 mmol/L (3.5-5.1); SODIUM SERUM 142 mmol/L (136-145); UREA NITROGEN, BLOOD 9 mg/dL (7-18)
[2019-01-05] MEDS: VANCOMYCIN 1 GM in IV D5W 250 ML IV SCH (09:34)
--- NOTE | 2019-01-05 09:34 | NUR ---
DONATO TROPH 11 PROCEEDED WITH ADMINISTRATION
[2019-01-05] MEDS ORDERED: POTASSIUM CHLORIDE 20 MEQ TAB.PRT.SR PO ONE ×2 (12:00→16:00)
--- NOTE | 2019-01-05 12:00 | NUR ---
RN NOTE NOTIFIED ABOUT HYPOKALCEMIA. NEW ORDERS CARRIED OUT BY RN. BLOOD PRESSURE RE ASSESED. 142/80
--- NOTE | 2019-01-05 19:31 | NUR ---
MS RN NOTES RECEIVED PT ON BED. A/O X 1. ON NASAL CANNULA NO RESPIRATORY DISTRESS NOTED. IV ACCESS ON LFA G18 PATENT AND INTACT. HEAD OF BED ELEVATED. SIDE RAILS UP X3. BED ALARM ON. WILL CONTINUE TO MONITOR PT CLOSELY.
[2019-01-05 20:00] VITALS: BP 131/64
[2019-01-05] MEDS: ATORVASTATIN 10 MG TABLET PO SCH (21:10)
[2019-01-06] MEDS: PIPERACILLIN /TAZOBACTAM 3.375 G in IV D5W 50 ML IV SCH ×4 (02:00→20:30)
[2019-01-06] MEDS: ASPIRIN EC 81 MG TABLET.DR PO SCH (02:00)
[2019-01-06 04:00] VITALS: BP 133/76
[2019-01-06 06:29] LABS: CARBON DIOXIDE 30 mmol/L (21-32); CHLORIDE 105 mmol/L (98-107); CREATININE 0.7 mg/dL (0.6-1.3); GLUCOSE 99 mg/dL (74-106); POTASSIUM 3.5 mmol/L (3.5-5.1); SODIUM SERUM 139 mmol/L (136-145); UREA NITROGEN, BLOOD 10 mg/dL (7-18)
--- NOTE | 2019-01-06 07:12 | NUR ---
MS RN NOTES NO ACUTE CHANGES NOTED DURING THE SHIFT. PROVIDED COMFORT AND SAFETY. NO RESPIRATORY DISTRESS. ENDORSED TO THE AM NURSE FOR CONTINUITY OF CARE.
[2019-01-06 08:00] VITALS: BP 147/68
[2019-01-06] MEDS: ESCITALOPRAM OXALATE (10 MG) 10 MG TABLET PO SCH (09:41)
[2019-01-06] MEDS: LACTOBACILLUS RHAMNOSUS GG 1 EACH CAP.SPRINK PO SCH ×2 (09:41→16:48)
[2019-01-06] MEDS: MEMANTINE HCL 5 MG TABLET PO SCH ×2 (09:42→16:48)
[2019-01-06] MEDS: LEVETIRACETAM (250 MG) 250 MG TABLET PO SCH ×2 (09:42→16:48)
[2019-01-06] MEDS: ENOXAPARIN SODIUM 40 MG/0.4 ML DISP.SYRIN SQ SCH (09:44)
[2019-01-06] MEDS: VALSARTAN 40 MG TABLET PO SCH (09:46)
[2019-01-06 16:00] VITALS: BP 126/78
--- NOTE | 2019-01-06 19:10 | NUR ---
MS RN INITIAL NOTES Received patient in bed, alert, oriented x 1. Breathing even and unlabored. Not in any distress, on O2 at 2LPM via nasal cannula. Head of bed elevated. Safety measures in place. Siderails x 3 up. Will continue to monitor accordingly
[2019-01-06 20:00] VITALS: BP 138/62
[2019-01-06] MEDS: ATORVASTATIN 10 MG TABLET PO SCH (21:32)
[2019-01-07] MEDS: ASPIRIN EC 81 MG TABLET.DR PO SCH (01:42)
[2019-01-07] MEDS: PIPERACILLIN /TAZOBACTAM 3.375 G in IV D5W 50 ML IV SCH ×4 (02:25→21:08)
--- NOTE | 2019-01-07 02:25 | NUR ---
RN NOTES Patient sleeping, appears comfortable. Not in any distress. IV zosyn given as ordered
[2019-01-07 04:00] VITALS: BP 129/61
--- NOTE | 2019-01-07 06:22 | NUR ---
MS RN CLOSING NOTES Patient in bed, sleeping, easily arousable. Breathing even and unlabored. Not in any distress. On O2 at 2LPM via nasal cannula. No acute changes overnight. All needs attended. All due meds given as ordered. Turned and repositioned. Safety measures in place. Will endorse CYNDI to oncoming RN
[2019-01-07 06:46] LABS: BASOPHILS # (AUTO) 0.1 /CMM (0.0-0.2); BASOPHILS % (AUTO) 0.7 % (0.0-2.0); CALCIUM, SERUM 8.1 mg/dL (8.5-10.1); CARBON DIOXIDE 29 mmol/L (21-32); CHLORIDE 104 mmol/L (98-107); CREATININE 0.7 mg/dL (0.6-1.3); EOSINOPHILS % (AUTO) 2.4 % (0.0-6.0); GLUCOSE 94 mg/dL (74-106); HEMATOCRIT 35 % (39-51); HEMOGLOBIN 10.9 g/dL (13.5-17.5); LYMPHOCYTES # (AUTO) 1.5 /CMM (0.8-4.8); LYMPHOCYTES % (AUTO) 16.8 % (20.0-44.0); MEAN CORPUSCULAR HGB CONC 32 g/dl (31.0-36.0); MEAN CORPUSCULAR VOLUME 69 fL (80-96); MONOCYTES # (AUTO) 0.7 /CMM (0.1-1.30); MONOCYTES % (AUTO) 7.9 % (2.0-12.0); NEUTROPHILS # (AUTO) 6.2 /CMM (1.8-8.9); NEUTROPHILS % (AUTO) 72.2 % (43.0-81.0); PLATELET COUNT (AUTO) 211 /CMM (150-450); RED BLOOD CELL COUNT(AUTO) 4.98 MIL/uL (4.5-6.0); SODIUM SERUM 141 mmol/L (136-145); UREA NITROGEN, BLOOD 9 mg/dL (7-18); WHITE BLOOD COUNT (AUTO) 8.6 K/uL (4.3-11.0)
[2019-01-07 07:42] LABS: POTASSIUM 2.7 mmol/L (3.5-5.1)
--- NOTE | 2019-01-07 07:49 | NUR ---
ms rn note patient in bed , sleeping comfortably , but abusable to verbal and tacitly stimuli, lt fa hl intact , bed in lowest and locked position , no sob noted , respiration even unlabored , will cont to monitor closely
[2019-01-07 08:00] VITALS: BP 164/77
[2019-01-07] MEDS: LACTOBACILLUS RHAMNOSUS GG 1 EACH CAP.SPRINK PO SCH ×2 (09:07→17:11)
[2019-01-07] MEDS: VALSARTAN 40 MG TABLET PO SCH (09:07)
[2019-01-07] MEDS: LEVETIRACETAM (250 MG) 250 MG TABLET PO SCH ×2 (09:08→17:11)
[2019-01-07] MEDS: MEMANTINE HCL 5 MG TABLET PO SCH ×2 (09:08→17:11)
[2019-01-07] MEDS: ENOXAPARIN SODIUM 40 MG/0.4 ML DISP.SYRIN SQ SCH (09:10)
[2019-01-07] MEDS: ESCITALOPRAM OXALATE (10 MG) 10 MG TABLET PO SCH (09:11)
--- NOTE | 2019-01-07 09:52 | NUR ---
ms rn note k 2.[address] preciado with order 60 meq po time one ,order carried out
[2019-01-07] MEDS ORDERED: POTASSIUM CHLORIDE 10 MEQ TABLET.SA PO ONE (10:00)
--- NOTE | 2019-01-07 11:00 | NUR ---
MS RN NOTE DR MOONEY AT BEDSIDE ,SPOKE WITH FAMILY AND PATIENT, ORDERED HD FOR TODAY AWARE THAT PATIENT C\O FEEL TIRED AND WEEK
--- NOTE | 2019-01-07 12:00 | NUR ---
ms rn note spoke with ozzy guzman notifyed that patient still sleeping but respond to verbal and tactile stimuli slow stated that patient has dx dementia will f\u
--- NOTE | 2019-01-07 12:36 | NUR ---
MS RN NOTE DR ARREOLA AT BEDSIDE SPOKE WITH SON OF PATIENT Addendum: 01/07/19 at 1719 by LEAH GUZMAN RN wrong chart
--- NOTE | 2019-01-07 13:00 | NUR ---
MS RN NOTE FED BY TRAIN CALLER ATE 75% WILL MONITOR
[2019-01-07 16:00] VITALS: BP 160/71
--- NOTE | 2019-01-07 16:30 | NUR ---
MS RN NOTE PER PABLITO TELLO MANAGER MSW OK TO DISCHARGE TO SNF , NOW PATIENT MORE ALERT AND COOPERATIVE ,CALLED TO [facility] ,REPORT GIVEN , SPOKE WITH SHERRY TELLO
--- NOTE | 2019-01-07 16:30 | NUR ---
ms rn note left a massage to son yeimy about patient will be discharge to snf
--- NOTE | 2019-01-07 18:09 | NUR ---
MS RN NOTE FED BY STAFF ATE 75 % KEEP CLEAN DRY , ALL NEEDS ATTENDED
--- NOTE | 2019-01-07 18:52 | NUR ---
MS RN NOTE AMBULANCE NOT ARRIVED YET , CHARGE NURSE FLORA CALLED SHOE REPAIRER RUDDY STATED THAT WILL CHECK IT OUT, WILL F\U
--- NOTE | 2019-01-07 19:28 | NUR ---
MS RN INITIAL NOTES RECEIVED PATIENT IN BED, AWAKE, ALERT AND ORIENTED X1. PER AM RN REPORT, PATIENT TO BE DISCHARGED TO [facility] AND EXIT CARE AND DISCHARGE PAPERS DONE AND RECORDED, ALSO FAMILY AWARE OF TRANSPORT. PATIENT ON 2L VIA NC, NO SOB NOTED, RR EVEN AND UNLABORED. NOT IN ANY DISTRESS. IV SITE LFA #18G S/L, SITE C/D/I, FLUSHING AND INTACT. SAFETY MEASURES MAINTAINED; HOB ELEVATED, CALL LIGHT WITHIN REACH, SIDE RAILS UP X2, BED LOCKED AND IN LOWEST POSITION. WILL CONT TO MONITOR PT.
[2019-01-07 20:00] VITALS: BP 127/64
--- NOTE | 2019-01-07 20:10 | NUR ---
CALLED AMBULANCE FOR ETA. STATED ETA AT 2029. AWAITING FOR AMBULANCE CONSTRUCTION ENGINEERING MANAGER.
[2019-01-07] MEDS: ATORVASTATIN 10 MG TABLET PO SCH (22:35)
--- NOTE | 2019-01-07 22:48 | NUR ---
MS RN D/C NOTES PATIENT IN BED, SLEEPING BUT EASY TO AROUSE. A/OX1. TO BE DISCHARGED TO [facility]. EXIT CARE AND DISCHARGE PAPERS DONE AND RECORDED, ALSO FAMILY AWARE OF TRANSPORT. BELONGINGS LIST CHECKED AND RECORDED. PATIENT ON 2L VIA NC, NO SOB NOTED, RR EVEN AND UNLABORED. NOT IN ANY DISTRESS. IV REMOVED. REPOSITIONED Q2H. SAFETY MEASURES MAINTAINED. ENDORSED TO AMBULANCE PERSONNEL FOR CYNDI. Addendum: 01/07/19 at 2300 by THU DRAPER RN PATIENT STABLE, V/S WNL. PATIENT LEFT THE UNIT VIA GURNEY WITH AMBULANCE PERSONNEL.
== END 2019-01-07 23:00 | DRG 177 ==
LOC: ER 23:48 → TELE1 01-03 02:05 → MEDSG1 01-03 03:21
PROVIDERS: ADMIT Nurse Practitioner Acute Care; ATTEND Nurse Practitioner Acute Care
DX: J15.6 Pneumonia due to other Gram-negative bacteria (principal); G92 Toxic encephalopathy; D68.59 Other primary thrombophilia; E44.0 Moderate protein-calorie malnutrition; N39.0 Urinary tract infection, site not specified; I50.32 Chronic diastolic (congestive) heart failure; Z68.1 Body mass index [BMI] 19.9 or less, adult; E11.9 Type 2 diabetes mellitus without complications; E87.6 Hypokalemia; D63.8 Anemia in other chronic diseases classified elsewhere; F32.9 Major depressive disorder, single episode, unspecified; G30.9 Alzheimer's disease, unspecified; F02.80 Dementia in other diseases classified elsewhere, unspecified severity, without behavioral disturbance, psychotic disturbance, mood disturbance, and anxiety; I25.10 Atherosclerotic heart disease of native coronary artery without angina pectoris; N40.1 Benign prostatic hyperplasia with lower urinary tract symptoms; K21.9 Gastro-esophageal reflux disease without esophagitis; I11.0 Hypertensive heart disease with heart failure; G40.909 Epilepsy, unspecified, not intractable, without status epilepticus; Z86.73 Personal history of transient ischemic attack (TIA), and cerebral infarction without residual deficits; Z79.82 Long term (current) use of aspirin; J15.9 Unspecified bacterial pneumonia; D72.829 Elevated white blood cell count, unspecified; E88.09 Other disorders of plasma-protein metabolism, not elsewhere classified; M62.50 Muscle wasting and atrophy, not elsewhere classified, unspecified site; Z79.84 Long term (current) use of oral hypoglycemic drugs
CPT/HCPCS: 36415; 71045-TC; 80048-TC; 80061-TC; 80076-TC; 80202-TC; 81000-TC; 82140-TC; 83540-TC; 83605-TC; 83735-TC; 84100-TC; 84443-TC; 84484-TC; 85025-TC; 85730-TC; 87040-TC; 87081-TC; 87086-TC; 97112-TC; 97530-TC; G0378; J0360; J1650; J2543; J3370; J3475; J3480; J7050; J7060

== ENCOUNTER 2019-02-25 16:03 | Inpatient (IN) | payer MEDICARE, MEDICAID ==
[~2019-02-25] VITALS: Ht 152.4 cm; Wt 50.2 kg
--- NOTE | 2019-02-25 16:09 | NUR ---
DR SHAIKH AT BEDSIDE FOR EVAL.
--- NOTE | 2019-02-25 16:14 | NUR ---
IV LINE STARTED BLOOD DRAWN AND SENT TO LAB.
[2019-02-25] MEDS ORDERED: DOCU-141 PO (16:17)
[2019-02-25] MEDS ORDERED: NA P133E RC (16:17)
[2019-02-25] MEDS ORDERED: BISA10SU11 RC (16:17)
[2019-02-25] MEDS ORDERED: MAGN400O6 PO (16:17)
[2019-02-25] MEDS ORDERED: ACET-2605 PO (16:17)
[2019-02-25 16:20] LABS: BASOPHILS # (AUTO) 0.1 /CMM (0.0-0.2); BASOPHILS % (AUTO) 0.6 % (0.0-2.0); EOSINOPHILS % (AUTO) 0.1 % (0.0-6.0); HEMATOCRIT 47 % (39-51); HEMOGLOBIN 14.3 g/dL (13.5-17.5); LYMPHOCYTES # (AUTO) 1.8 /CMM (0.8-4.8); LYMPHOCYTES % (AUTO) 16.4 % (20.0-44.0); MEAN CORPUSCULAR HGB CONC 31 g/dl (31.0-36.0); MEAN CORPUSCULAR VOLUME 72 fL (80-96); MONOCYTES # (AUTO) 0.4 /CMM (0.1-1.30); MONOCYTES % (AUTO) 3.4 % (2.0-12.0); NEUTROPHILS # (AUTO) 8.8 /CMM (1.8-8.9); NEUTROPHILS % (AUTO) 79.5 % (43.0-81.0); PLATELET COUNT (AUTO) 196 /CMM (150-450); RED BLOOD CELL COUNT(AUTO) 6.53 MIL/uL (4.5-6.0); WHITE BLOOD COUNT (AUTO) 11.1 K/uL (4.3-11.0)
--- NOTE | 2019-02-25 16:29 | NUR ---
Paged [facility] -- quality control assistant is Dr Valentino.
[2019-02-25] MEDS ORDERED: PIPERACILLIN /TAZOBACTAM 3.375 G in IV D5W 50 ML IV ONE (16:30)
[2019-02-25] MEDS ORDERED: IV NS 0.9% 1,000 ML BAG IV ONE (16:30)
[2019-02-25] MEDS ORDERED: VANCOMYCIN 1 GM in IV D5W 250 ML IV ONE (16:30)
[2019-02-25] MEDS ORDERED: ACETAMINOPHEN 650 MG/SUPP.RECT RC ONE ×2 (16:30→16:34)
[2019-02-25 16:38] LABS: ALANINE AMINOTRANSFERASE 22 U/L (12-78); ALBUMIN 3.7 g/dL (3.4-5.0); ALKALINE PHOSPHATASE 74 U/L (46-116); ASPARTATE AMINOTRANSFERASE 18 U/L (15-37); BILIRUBIN,DIRECT 0.4 mg/dL (0.0-0.2); BILIRUBIN,TOTAL 1.1 mg/dL (0.2-1.0); CALCIUM, SERUM 9.4 mg/dL (8.5-10.1); CARBON DIOXIDE 28 mmol/L (21-32); CHLORIDE 119 mmol/L (98-107); CREATININE 1.6 mg/dL (0.6-1.3); GLUCOSE 118 mg/dL (74-106); POTASSIUM 3.9 mmol/L (3.5-5.1); TOTAL PROTEIN, SERUM 8.4 g/dL (6.4-8.2); UREA NITROGEN, BLOOD 45 mg/dL (7-18)
[2019-02-25 16:41] LABS: SODIUM SERUM 158 mmol/L (136-145)
[2019-02-25 17:33] LABS: LYMPHOCYTES % (MANUAL) 12 % (16-48); MONOCYTES % (MANUAL) 4 % (0-11.0); NEUTROPHILS % (MANUAL) 84 (42-76)
--- NOTE | 2019-02-25 17:57 | NUR ---
REPORT GIVEN TO ELDA TELLO. PT AWAITING TRANSFER TO FLOOR.
[2019-02-25 18:30] VITALS: BP 107/60
[2019-02-25] MEDS ORDERED: NA PHOS,M-B/NA PHOS,DI-BA 1 EA ENEMA RC PRN (18:30)
[2019-02-25] MEDS ORDERED: TRAMADOL HCL 50 MG TABLET PO PRN (18:30)
[2019-02-25] MEDS ORDERED: MISCELLANEOUS MED 1 EA EA PO PRN (18:30)
[2019-02-25] MEDS ORDERED: MAGNESIUM HYDROXIDE 30 ML UDC PO PRN ×2 (18:30)
[2019-02-25] MEDS ORDERED: MAG HYDROX/AL HYDROX/SIMETH 30 ML UDC PO PRN (18:30)
[2019-02-25] MEDS ORDERED: ACETAMINOPHEN 325 MG TABLET PO PRN ×2 (18:30)
[2019-02-25] MEDS ORDERED: ONDANSETRON HCL/PF 4 MG/2 ML VIAL IVP PRN (18:30)
[2019-02-25] MEDS ORDERED: HYDROCODONE/APAP 5/325MG 1 EACH TABLET PO PRN (18:30)
[2019-02-25] MEDS ORDERED: BISACODYL SUPP (10 MG) 10 MG/SUPP.RECT SUPP.RECT RC PRN (18:30)
[2019-02-25] MEDS ORDERED: Z GUARD REMEDY 2 OZ OINT TP PRN (18:30)
--- NOTE | 2019-02-25 18:30 | NUR ---
KETTLE COOK NOTES ADMITTED FROM ER REPORT GIVEN BY ABDOUL. PATIENT EYES CLOSED EASY TO AROUSE, RESPOND TO VERBAL AND TACTILE STIMULI. NO ACUT DISTRESS NOTED. BREATHING UNLABORED. PLACED ON TELE MONITOR, SINUS RHYTHM. NEEDS ATTENDED AND ANTICIPATED. VITAL SIGNS STABLE. WILL CONTINUE TO MONITOR PATIENT. WILL ENDORSE TO NIGHT NURSE FOR ADMISSION AND CONTINUITY OF CARE.
[2019-02-25] MEDS ORDERED: FEE PK DOSING 1 MIN EA MC ONE (18:38)
--- NOTE | 2019-02-25 19:30 | NUR ---
ADMISSION NOTES: RECEIVED REPORT FROM SHWETA TELLO. PT IN BED, NON VERBAL, AROUSES TO PAINFUL STIMULI (STERNAL RUB). ON 5L OXYGEN VIA NC RESPIRATIONS EVEN AND UNLABORED, NO DISTRESS NOTED, SPO2 92%. IV ACCESS PATENT AND FLUSHING WELL, ON HL. ON TELE SINUS RHYTHM HR 72. SKIN ASSESSMENT PERFORMED. PLEASE SEE ASSESSMENT LOG. INVENTORY OF BELONGINGS COMPLETED. SAFETY PRECAUTIONS FOR FALL INITIATED, CALL LIGHT IN REACH, WILL CONTINUE MONITORING PT.
[2019-02-25 20:00] VITALS: BP 99/56
[2019-02-25] MEDS: IV 1/2NS 1000 ML 1,000 ML IV PRN (20:30)
[2019-02-25] MEDS: ZOSYN IVPB 2.25 G in IV D5W 50ml IV SCH (21:50)
[2019-02-25] MEDS: ATORVASTATIN 10 MG TABLET PO SCH (22:00)
--- NOTE | 2019-02-25 22:36 | NUR ---
NON ADMIN OF LIPITOR PO: PER CLINICAL ASSESSMENT , PT FAILED NURSING SWALLOW SCREEN , RISK FOR ASPIRATION, LIPITOR PO NOT ADMINISTERED AT THIS TIME. WILL HAVE SWALLOW EVAL IN AM PER MD.
--- NOTE | 2019-02-25 22:56 | NUR ---
LACTIC REFLEX/LACTIC 2.3: RECEIVED CRITICAL LAB RESULT FOR LACTIC ACID RESULT IS 2.3, REPORTED BY SHAHBAZ FROM LAB. NOTIFIED MD UNHAIRER, AWAITING FOR CALL BACK
--- NOTE | 2019-02-25 23:09 | NUR ---
RN NOTES: POSTER MD CURRENTLY IN THE UNIT, RELAYED RESULT OF LACTIC ACID 2.3. INFORMED PT ON IVF, AND IV ATB. PER MD DO ANOTHER LACTIC ACID IN 6HRS.
[2019-02-26] VITALS (42 sets, daily range): BP systolic 84–139; BP diastolic 45–80
--- NOTE | 2019-02-26 00:05 | NUR ---
RN NOTES: NOTED SPO2 86% ON 5L OXYGEN VIA NC. CHANGED TO SIMPLE MASK AT 10L, NO SPO2 92%, STABLE. CONNECTED PT TO CONTINUOUS PULSE OX MONITORING.
--- NOTE | 2019-02-26 00:24 | NUR ---
rn notes: check pt's blood sugar, result is 108
--- NOTE | 2019-02-26 01:16 | NUR ---
RN NOTES: PLACED PT ON NRB MASK AND SPO2 STILL SHOWING 85%, STAT ABG ORDERED BY . CONTACTED RT, SPOKED WITH ELIDIA, WILL COME TO DRAW ABG
[2019-02-26 01:38] LABS: ABG BASE EXCESS -3.7 mmol/L; ABG PCO2 35.1 mmHg (35.0-45.0); ABG PH 7.386 (7.350-7.450); ABG PO2 59.1 mmHg (75.0-100.0); AaDO2 618.8 mmHg; COHb 0.9 % (0.5-1.5); MetHb 0.5 % (0.0-1.5); O2Hb 87.8 % (94.0-97.0); SITE, ABG Left Radial; VENT MODE, BG 15 L/M VIA NON-REBREATHER
--- NOTE | 2019-02-26 01:45 | NUR ---
RN NOTES: RESULT OF ABG CAME BACK, PER RT ELIDIA, ONLY PO2 LOW AT 59.1, HOWEVER SINCE PT IS ON NRB AT 15L, AND SPO2 REMAINS ON 80'S HIGHEST 83, HE RECOMMENDS BIPAP FOR PT. WILL NOTIFY MECHANIC HELPER
--- NOTE | 2019-02-26 02:00 | NUR ---
RN NOTES: SPOKED WITH DR VIGIL, RELAYED SITUATION. PER MD TO TRANSFER PT TO ICU, NEEDS BIPAP, CONTINUE ALL MEDS/ORDER
--- NOTE | 2019-02-26 02:26 | NUR ---
TRANSFER NOTES: REPORT GIVEN TO GOVERNMENT MINISTER YOGI. PT WAS TRANSFERRED TO ICU ROOM 258 VIA ACLS PROTOCOL. ALL MEDICATIONS SENT WITH PT UPON TRANSFER. PT HAS NO BELONGINGS.
[2019-02-26] MEDS: ZOSYN IVPB 2.25 G in IV D5W 50ml IV SCH ×4 (03:30→21:11)
[2019-02-26 05:47] LABS: ABG OXYGEN SATURATION 92.3 % (92.0-98.5); ABG PCO2 35.5 mmHg (35.0-45.0); ABG PH 7.362 (7.350-7.450); ABG PO2 67.6 mmHg (75.0-100.0); AaDO2 609.9 mmHg; COHb 0.9 % (0.5-1.5); MetHb 0.4 % (0.0-1.5); O2Hb 91.1 % (94.0-97.0); SITE, ABG Left Radial; VENT MODE, BG BIPAP 18/8 BUR 12
--- NOTE | 2019-02-26 05:56 | NUR ---
RT NOTE: STAT ABG ORDERED DUE TO PT HAVING EPISODES OF DESATURATION. ABG DONE AND DOCUMENTED WITH LOW PO2 VALUES ON 100% FIO2 NON-REBREATHER. 3 RAJESH RN NOTIFIED. PER ER MD ANDONIAN PT TRANSFER TO ICU AND TO BE PLACED ON BIPAP. PER NEW MD ORDERS ONCE PT TRANSFERRED TO ICU PLACED PT ON ORDERED BIPAP SETTING IPAP 18 EPAP 8 BUR 12 @ 100% FIO2. PT NIMESH WELL WITH NO ACUTE EPISODES OF DISTRESS NOTED. ABG DONE 2 HOURS AFTER PLACING ON BIPAP PH AND CO2 WNL. PO2 TRENDING UPWARD. SUPERVISOR TILE AND MOTTLE NOTIFIED AND AWARE. MEPILEX PLACED ON PT'S FACE FOR SKIN PROTECTIVE BARRIERS.
--- NOTE | 2019-02-26 06:27 | NUR ---
VOCATIONAL SCHOOL TEACHER PT WAS TRANSFERRED FROM TELE /ROOM 309/ OT ICU WITH DIAGNOSIS SEPSIS, RESPIRATORY FAILURE. PT IS OBTUNDED, NONVERBAL, DOES NOT MOVE EXTREMITIES, DOES NOT FOLLOW ANY COMMANDS, RESPONSE TO PAINFUL STIMULI ONLY. PUPILS EQUAL, SLUGGISH. SCOPE-SR WITH OCC. PVC'S. VSS, AFEBRILE.PT PLACED ON BIPAP /18/8-12-100%/. F/C WAS INSERTED. AM LABS & ABG DONE. WILL CONTINUE CLOSE MONITORING.
--- NOTE | 2019-02-26 06:32 | NUR ---
RN NOTES: SEEN ORDER FROM ER, ABOUT URINE FOR UA AND CULTURE, NOTHING WAS COLLECTED. CONTACTED ICU, SPOKED TO ASSIGNED TANK TESTER, PER ED HE JUST INSERTED GAMBOA CATHETER AND WILL COLLECT URINE.
[2019-02-26 06:38] LABS: BASOPHILS % (AUTO) 0.3 % (0.0-2.0); EOSINOPHILS % (AUTO) 0.1 % (0.0-6.0); HEMATOCRIT 46 % (39-51); HEMOGLOBIN 13.7 g/dL (13.5-17.5); LYMPHOCYTES # (AUTO) 0.7 /CMM (0.8-4.8); LYMPHOCYTES % (AUTO) 4.4 % (20.0-44.0); MEAN CORPUSCULAR HGB CONC 30 g/dl (31.0-36.0); MEAN CORPUSCULAR VOLUME 73 fL (80-96); MONOCYTES # (AUTO) 0.5 /CMM (0.1-1.30); MONOCYTES % (AUTO) 3.3 % (2.0-12.0); NEUTROPHILS # (AUTO) 15.1 /CMM (1.8-8.9); NEUTROPHILS % (AUTO) 91.9 % (43.0-81.0); PLATELET COUNT (AUTO) 131 /CMM (150-450); RED BLOOD CELL COUNT(AUTO) 6.27 MIL/uL (4.5-6.0); WHITE BLOOD COUNT (AUTO) 16.5 K/uL (4.3-11.0)
--- NOTE | 2019-02-26 06:40 | NUR ---
RN NOTES: NOTIFIED PT'S FAMILY, PERSON TO NOTIFY IS KELSY COOK (SISTER), . INFORMED ABOUT PT'S CONDITION AND TRANSFER TO ICU. PER PT'S SISTER, REQUESTING TO ALSO NOTIFY EMERY JOEY CANALES, WHO IS PT'S SON, LIVING IN [place] BUT SHE FORGOT THE NUMBER. STATED SHE WILL CALL BACK TO GIVE THE NUMBER.
[2019-02-26 06:54] LABS: CALCIUM, SERUM 8.3 mg/dL (8.5-10.1); CARBON DIOXIDE 23 mmol/L (21-32); CHLORIDE 117 mmol/L (98-107); CREATININE 1.5 mg/dL (0.6-1.3); GLUCOSE 135 mg/dL (74-106); MAGNESIUM 2.3 mg/dL (1.8-2.4); PHOSPHORUS 5.4 mg/dL (2.5-4.9); POTASSIUM 3.4 mmol/L (3.5-5.1); SODIUM SERUM 155 mmol/L (136-145); UREA NITROGEN, BLOOD 50 mg/dL (7-18)
--- NOTE | 2019-02-26 07:10 | NUR ---
AUTOMOBILE UPHOLSTERY TRIM INSTALLER INITIAL NOTES: Rec'd pt on bed, not in any distress, lethargic. On Bipap, sating at 98%. SR on telemonitor. Has FC draining to yaquelin UOP, for urine specimen collection as endorsed. Has RFA G18 w/ 1/2 NS x 100cc/hr infusing well w/ no s/sx of infection/infiltration noted. Safety precaution in place w/ bed in lowest & locked pos. Call light placed w/in reach. Will continue to monitor & attend pt needs.
--- NOTE | 2019-02-26 07:19 | NUR ---
RN NOTES: SPOKED WITH EMERY WILDE'S SON [phone], INFORMED PT'S CONDITION AND TRANSFER TO ICU. TRIED CALLING THE OTHER SON, DOROTHY AT [phone], NO ANSWER.
[2019-02-26] MEDS: IV 1/2NS 1000 ML 1,000 ML IV PRN ×2 (08:03→18:23)
[2019-02-26] MEDS: ESCITALOPRAM OXALATE (10 MG) 10 MG TABLET PO SCH (08:23)
[2019-02-26] MEDS: MEMANTINE HCL 5 MG TABLET PO SCH ×2 (08:23→17:00)
[2019-02-26] MEDS: LEVETIRACETAM (250 MG) 250 MG TABLET PO SCH ×2 (08:23→17:00)
[2019-02-26] MEDS ORDERED: VALSARTAN 40 MG TABLET PO SCH (09:00)
--- NOTE | 2019-02-26 09:15 | NUR ---
Pt seen & examined by Dr. Valentino, updated about pt condition. Per MD, may DC neuro assessment q2h.
[2019-02-26 09:28] LABS: APPEARANCE,URINE TURBID (CLEAR); BILIRUBIN,URINE 1+ (NEGATIVE); BLOOD, URINE 3+ Ery/uL (NEGATIVE); COLOR,URINE YELLOW (YELLOW); KETONES,URINE 1+ (NEGATIVE); LEUKOCYTE ESTERASE ,URINE NEGATIVE (NEGATIVE); NITRITE, URINE NEGATIVE (NEGATIVE); PH,URINE 5.5 (5.0-8.0); PROTEIN,URINE TRACE mg/dl (NEGATIVE); UGLUCOSE NEGATIVE (NEGATIVE)
--- NOTE | 2019-02-26 09:50 | NUR ---
Rec'd call from pt's son Luis, updated about pt condition. Per Luis, pt's baseline is A/O x 1, confused & forgetful. Family will decide about POC.
[2019-02-26] MEDS: VANCOMYCIN 500 MG in IV D5W 100 ML IV SCH (09:51)
[2019-02-26 09:53] LABS: CREATININE, URINE 196.6 MG/DL (30.0-125.0)
[2019-02-26] MEDS: POTASSIUM CL. PREMIX PERIPHER. 50 ML IV SCH ×2 (10:04→11:03)
[2019-02-26 10:26] LABS: WBC,URINE 0-2 /HPF (0-3)
[2019-02-26 10:27] LABS: BACTERIA,URINE Moderate /HPF (None Seen); RBC,URINE 21-50 /HPF (0-2); SQUAMOUS EPITHELIAL CELL,UR Rare /HPF (None Seen); URINE AMORPHOUS URATE Many /HPF (None Seen)
[2019-02-26 16:10] LABS: ABG BASE EXCESS -2.9 mmol/L; ABG OXYGEN SATURATION 98.6 % (92.0-98.5); ABG PCO2 38.1 mmHg (35.0-45.0); ABG PH 7.377 (7.350-7.450); ABG PO2 143.7 mmHg (75.0-100.0); AaDO2 531.2 mmHg; COHb 0.8 % (0.5-1.5); MetHb 0.5 % (0.0-1.5); O2Hb 97.3 % (94.0-97.0); SITE, ABG Left Brachial; VENT MODE, BG IPAP 18 / EPAP 8
[2019-02-26] MEDS: LACTOBACILLUS RHAMNOSUS GG 1 EACH CAP.SPRINK PO SCH (17:00)
[2019-02-26] MEDS ORDERED: ASPIRIN EC 81 MG TABLET.DR PO SCH (17:00)
--- NOTE | 2019-02-26 17:21 | NUR ---
FIO2 DECREASED FROM 100% TO 60% DUE TO PAO2 143 mmHg AND SPO2 100% Addendum: 02/26/19 at 1723 by ROXANA ASHLEY RT Amended: Links added.
[2019-02-26] MEDS ORDERED: DOCUSATE SODIUM 100 MG CAPSULE PO SCH (18:00)
--- NOTE | 2019-02-26 18:20 | NUR ---
Dr. Valentino made aware re: SBP's 70-80's, UOP yaquelin 200cc, Na 155. Per , bolus NS 500 x 1.
[2019-02-26] MEDS ORDERED: IV NS 0.9% 500 ML IV ONE (18:30)
--- NOTE | 2019-02-26 18:47 | NUR ---
SEAT COVER INSTALLER CLOSING NOTES: Pt resting comfortably on his bed. Still lethargic while Bipap w/ FiO2 down to 50%, sating at 98%. Remains SR on telemonitor. FC draining to yaquelin UOP. IV line access on RFA G18 w/ 1/2 NS x 100cc/hr & RAC G20 w/ NS 500cc ongoing bolus for BP support infusing well w/ no s/sx of infection/infiltration noted. Safety precaution kept in place at all times w/ bed in lowest & locked pos. Call light placed w/in reach. Will endorse to PM RN for CYNDI.
--- NOTE | 2019-02-26 19:31 | NUR ---
RN 500 ML IV BOLUS DONE, BP 99/56, WILL CONTINUE TO MONITOR.
--- NOTE | 2019-02-26 20:52 | NUR ---
Received Pt on BiPAP on noted settings. No distress, tolerating settings. Pt has a Large full mask and mepilex in place. Skin intact no redness. Alarms set and audible. Will continue to monitor. Addendum: 02/26/19 at 2053 by JOESPH LONDONO RT Amended: Links added.
[2019-02-26] MEDS: ATORVASTATIN 10 MG TABLET PO SCH (21:10)
[2019-02-26] MEDS ORDERED: NOREPINEPHRINE 4 MG/4 ML AMPUL IV ONE (22:10)
[2019-02-26] MEDS ORDERED: NOREPINEPHRINE 8 MG in IV D5W 500 ML IV PRN (22:30)
[2019-02-27] VITALS (37 sets, daily range): BP systolic 87–142; BP diastolic 49–76
[2019-02-27] MEDS: ZOSYN IVPB 2.25 G in IV D5W 50ml IV SCH ×4 (03:10→21:49)
[2019-02-27] MEDS: IV 1/2NS 1000 ML 1,000 ML IV PRN (03:10)
[2019-02-27 03:53] LABS: BASOPHILS # (AUTO) 0.1 /CMM (0.0-0.2); BASOPHILS % (AUTO) 0.6 % (0.0-2.0); EOSINOPHILS % (AUTO) 1.1 % (0.0-6.0); HEMATOCRIT 36 % (39-51); LYMPHOCYTES # (AUTO) 1.2 /CMM (0.8-4.8); LYMPHOCYTES % (AUTO) 8.8 % (20.0-44.0); MEAN CORPUSCULAR HGB CONC 30 g/dl (31.0-36.0); MEAN CORPUSCULAR VOLUME 71 fL (80-96); MONOCYTES # (AUTO) 0.5 /CMM (0.1-1.30); MONOCYTES % (AUTO) 3.3 % (2.0-12.0); NEUTROPHILS # (AUTO) 11.8 /CMM (1.8-8.9); NEUTROPHILS % (AUTO) 86.2 % (43.0-81.0); PLATELET COUNT (AUTO) 118 /CMM (150-450); RED BLOOD CELL COUNT(AUTO) 5.13 MIL/uL (4.5-6.0); WHITE BLOOD COUNT (AUTO) 13.7 K/uL (4.3-11.0)
[2019-02-27 04:00] LABS: CALCIUM, SERUM 7.6 mg/dL (8.5-10.1); CARBON DIOXIDE 22 mmol/L (21-32); CHLORIDE 117 mmol/L (98-107); CREATININE 1.2 mg/dL (0.6-1.3); GLUCOSE 130 mg/dL (74-106); POTASSIUM 3.3 mmol/L (3.5-5.1); SODIUM SERUM 151 mmol/L (136-145); UREA NITROGEN, BLOOD 44 mg/dL (7-18)
[2019-02-27] MEDS: VANCOMYCIN 500 MG in IV D5W 100 ML IV SCH ×2 (04:46→16:33)
[2019-02-27] MEDS: LACTOBACILLUS RHAMNOSUS GG 1 EACH CAP.SPRINK PO SCH ×2 (09:00→17:01)
[2019-02-27] MEDS: ESCITALOPRAM OXALATE (10 MG) 10 MG TABLET PO SCH (09:00)
[2019-02-27] MEDS: MEMANTINE HCL 5 MG TABLET PO SCH ×2 (09:00→17:01)
--- NOTE | 2019-02-27 09:19 | NUR ---
INITIAL RELATIONSHIP ASSOCIATE NOTE Rcvd pt awake, able to follow some commands, SR on monitor, on bipap with o2 saturation above 95%. pt npo at this time. Pharmacist called to change keppra from po to iv form. sosa to gravity draining clear, yaquelin colored urine. IV sites on JOSE clean, dry, intact, no signs of infiltration/phlebitis observed upon flushing. Will continue to monitor pt for safety and comfort. bed in low and locked position, call light within reach, head of bed elevated.
[2019-02-27] MEDS: NS 0.9% IV SCH ×2 (09:28→20:34)
[2019-02-27] MEDS: KEPPRA IV SCH ×2 (09:28→20:34)
[2019-02-27] MEDS ORDERED: POTASSIUM CHLORIDE 20 MEQ TAB.PRT.SR PO SCH (09:30)
[2019-02-27] MEDS ORDERED: PHARMACY TO CHANGE PO MEDS TO GT/NG XX PRN (10:30)
[2019-02-27] MEDS ORDERED: LACTOBACILLUS RHAMNOSUS GG 1 EACH CAP.SPRINK GT SCH (10:38)
[2019-02-27] MEDS ORDERED: ESCITALOPRAM OXALATE (10 MG) 10 MG TABLET GT SCH (10:38)
[2019-02-27] MEDS ORDERED: ATORVASTATIN 10 MG TABLET GT SCH (10:38)
[2019-02-27] MEDS ORDERED: MAG HYDROX/AL HYDROX/SIMETH 30 ML UDC GT PRN (10:38)
[2019-02-27] MEDS ORDERED: MAGNESIUM HYDROXIDE 30 ML UDC GT PRN (10:39)
[2019-02-27] MEDS ORDERED: MEMANTINE HCL 5 MG TABLET GT SCH (10:39)
[2019-02-27] MEDS ORDERED: HYDROCODONE/APAP 5/325MG 1 EACH TABLET GT PRN (10:40)
[2019-02-27] MEDS ORDERED: TRAMADOL HCL 50 MG TABLET GT PRN (10:40)
[2019-02-27] MEDS ORDERED: IV D5/ 0.9% NACL 1,000 ML IV PRN (11:00)
[2019-02-27] MEDS ORDERED: ACETAMINOPHEN 650 MG/20.3 ML UDC GT PRN (11:00)
[2019-02-27] MEDS: IV D5W 1,000 ML IV PRN (11:01)
[2019-02-27] MEDS ORDERED: MAG HYDROX/AL HYDROX/SIMETH 30 ML UDC PO PRN (11:12)
[2019-02-27] MEDS ORDERED: MAGNESIUM HYDROXIDE 30 ML UDC PO PRN (11:13)
[2019-02-27] MEDS ORDERED: HYDROCODONE/APAP 5/325MG 1 EACH TABLET PO PRN (11:16)
[2019-02-27] MEDS ORDERED: TRAMADOL HCL 50 MG TABLET PO PRN (11:17)
[2019-02-27] MEDS: POTASSIUM CL. PREMIX PERIPHER. 50 ML IV SCH ×2 (11:25→12:23)
[2019-02-27] MEDS ORDERED: ACETAMINOPHEN 325 MG TABLET PO PRN (11:30)
--- NOTE | 2019-02-27 14:47 | NUR ---
TABULATING CLERK note Pt off bipap transitioned to 4L nasal cannula this am around 0930, abg done this afternoon without any need to re-start bipap. Swallow eval ordered and speech therapist recommended pt to start pureed diet with nectar thick liquids. Dr. Valentino agrees with recommendations. Spoke with pt's son, Felice ALARCON and he stated that pt was on recommended diet at his facility. Felice ALARCON was updated regarding pt's condition and his questions were answered.
[2019-02-27 15:42] LABS: ABG BASE EXCESS -0.8 mmol/L; ABG OXYGEN SATURATION 93.6 % (92.0-98.5); ABG PCO2 34.3 mmHg (35.0-45.0); ABG PH 7.442 (7.350-7.450); ABG PO2 66.6 mmHg (75.0-100.0); AaDO2 150.3 mmHg; COHb 0.6 % (0.5-1.5); MetHb 0.5 % (0.0-1.5); O2Hb 92.6 % (94.0-97.0); SITE, ABG Left Radial; VENT MODE, BG N/C
[2019-02-27] MEDS ORDERED: ASPIRIN 81 MG TAB.CHEW GT SCH (17:00)
[2019-02-27] MEDS: ASPIRIN EC 81 MG TABLET.DR PO SCH (17:01)
[2019-02-27] MEDS ORDERED: DOCUSATE SODIUM LIQ 100 MG/10 ML UDC GT SCH (18:00)
[2019-02-27] MEDS: DOCUSATE SODIUM 100 MG CAPSULE PO SCH (18:27)
--- NOTE | 2019-02-27 18:40 | NUR ---
SCREEN CUTTER AND TRIMMER NOTE PT REMAINS STABLE OFF BIPAP, SR ON MONITOR, TOLERATING O2 VIA NASAL CANNULA, GAMBOA TO GRAVITY DRAINING YELLOW COLORED URINE. TOLERATING PUREED DIET, IV SITES CLEAN, DRY, INTACT, NO SIGNS OF INFILTRATION/PHLEBITIS OBSERVED UPON FLUSHING, IVF INFUSING ORDERED. PT'S CARE WILL BE ENDORSED TO ELECTRICAL LABORATORY TECHNICIAN RN FOR CONTINUITY OF CARE, BED IN LOW AND LOCKED POSITION, CALL LIGHT WITHIN REACH, HEAD OF BED ELEVATED.
--- NOTE | 2019-02-27 19:30 | NUR ---
ICU/RN NOTES RECEIVED PT WITH EYES OPEN,TRACKS,DOES NOT FOLLOW COMMANDS.REPOSITIONED.MONITOR SHOWS NSR.UNABLE TO ASSESS IF PT IN PAIN.IVF INFUSING AT 75ML/HR. VIA RT.FOREARM.SITE WITHOUT REDNESS OR SWELLING.GAMBOA IN DRAINING YELLOW TO GAURAV URINE.
[2019-02-27] MEDS: ATORVASTATIN 10 MG TABLET PO SCH (21:53)
[2019-02-28] VITALS (24 sets, daily range): BP systolic 83–161; BP diastolic 40–76
--- NOTE | 2019-02-28 01:00 | NUR ---
ICU/RN NOTES TOLERATING N/C AT 4LPM.WITH O2SAT OF95-96%.DENIES SHORTNESS OF BREATH.REPOSITIONED AND TURNED.MONITOR SHOWS NSR.
[2019-02-28] MEDS: IV D5W 1,000 ML IV PRN ×2 (02:27→17:47)
[2019-02-28] MEDS: ZOSYN IVPB 2.25 G in IV D5W 50ml IV SCH ×4 (03:41→21:45)
[2019-02-28 04:15] LABS: CALCIUM, SERUM 7.9 mg/dL (8.5-10.1); CREATININE 0.8 mg/dL (0.6-1.3); POTASSIUM 3.1 mmol/L (3.5-5.1)
[2019-02-28] MEDS: VANCOMYCIN 500 MG in IV D5W 100 ML IV SCH ×2 (04:21→16:47)
[2019-02-28 04:26] LABS: BASOPHILS % (AUTO) 0.3 % (0.0-2.0); EOSINOPHILS % (AUTO) 1.5 % (0.0-6.0); HEMATOCRIT 34 % (39-51); HEMOGLOBIN 10.5 g/dL (13.5-17.5); LYMPHOCYTES # (AUTO) 1.3 /CMM (0.8-4.8); LYMPHOCYTES % (AUTO) 11.7 % (20.0-44.0); MEAN CORPUSCULAR HGB CONC 31 g/dl (31.0-36.0); MEAN CORPUSCULAR VOLUME 71 fL (80-96); MONOCYTES # (AUTO) 0.5 /CMM (0.1-1.30); MONOCYTES % (AUTO) 4.1 % (2.0-12.0); NEUTROPHILS # (AUTO) 9.3 /CMM (1.8-8.9); NEUTROPHILS % (AUTO) 82.4 % (43.0-81.0); PLATELET COUNT (AUTO) 100 /CMM (150-450); RED BLOOD CELL COUNT(AUTO) 4.84 MIL/uL (4.5-6.0); WHITE BLOOD COUNT (AUTO) 11.4 K/uL (4.3-11.0)
--- NOTE | 2019-02-28 07:10 | NUR ---
RECEIVED PATIENT OPENS EYES TO PAINFUL STIMULI AND MOVES TO LOCALIZED PAIN. ON NC 4L WITHOUT DISTRESS, NO SOB, DIFFICULTY BREATHING AND FLACC 0. GAMBOA CATH TO GRAVITY AND PATENT. IV SITE C/D/I/P WITH IVF PER ORDER. TELE NSR. SKIN, SAFETY, ASPIRATION PRECAUTIONS IN PLACE AND WILL MONITOR.
--- NOTE | 2019-02-28 07:15 | NUR ---
ICU/RN NOTES VS STABLE.REPORT AND CARE F PT. GIVEN TO BEENA TELLO.
[2019-02-28] MEDS: LACTOBACILLUS RHAMNOSUS GG 1 EACH CAP.SPRINK PO SCH ×2 (09:00→16:11)
[2019-02-28] MEDS: MEMANTINE HCL 5 MG TABLET PO SCH ×2 (09:00→16:48)
[2019-02-28] MEDS: ESCITALOPRAM OXALATE (10 MG) 10 MG TABLET PO SCH (09:00)
[2019-02-28] MEDS: POTASSIUM CL. PREMIX PERIPHER. 50 ML IV SCH ×5 (09:30→12:46)
--- NOTE | 2019-02-28 10:45 | NUR ---
Dr. Moreno at bedside updated on patient labs, condition, vital signs. Per MD order ABG secondary to patients increased lethargy. Ok to downgrade pending pulmonology consult.
[2019-02-28 11:12] LABS: ABG BASE EXCESS -2.1 mmol/L; ABG OXYGEN SATURATION 95.2 % (92.0-98.5); ABG PCO2 32.6 mmHg (35.0-45.0); ABG PH 7.437 (7.350-7.450); ABG PO2 72.9 mmHg (75.0-100.0); AaDO2 88.3 mmHg; COHb 0.6 % (0.5-1.5); MetHb 0.5 % (0.0-1.5); O2Hb 94.2 % (94.0-97.0); SITE, ABG Right Radial; VENT MODE, BG 2L N/C
[2019-02-28] MEDS: NS 0.9% IV SCH ×2 (11:31→20:38)
[2019-02-28] MEDS: KEPPRA IV SCH ×2 (11:31→20:38)
[2019-02-28] MEDS: ASPIRIN EC 81 MG TABLET.DR PO SCH (16:47)
--- NOTE | 2019-02-28 17:00 | NUR ---
PATIENT REFUSING PO INTAKE/MEDICATIONS
[2019-02-28] MEDS: DOCUSATE SODIUM 100 MG CAPSULE PO SCH (18:00)
--- NOTE | 2019-02-28 18:35 | NUR ---
PATIENT MORE ALERT. OPENING EYES AND TRACKING. STATES NO TO PO INTAKE, WATER, FOOD, MEDICATIONS. 2L NC AND TOLERATING WELL. NO SOB, DIFFICULTY BREATHING AND FLACC 0. PATIENT IVF SITES C/D/I/P WITH IVF PER ORDER. GAMBOA CATH TO GRAVITY WITH ABOUT 950ML OUTPUT. SKIN, SAFETY, ASPIRATION PRECUTIONS IN PLACE AND MONITORED.
--- NOTE | 2019-02-28 19:45 | NUR ---
ICU/RN NOTES RECEIVED PT AWAKE W/ EYES OPEN,TRACKS,DOES NOT FOLLOW COMMANDS.ATTEMPTED TO GIVE LIQUID W/THICKENER BUT REFUSED AND SPITS AT NURSE.
[2019-02-28] MEDS: ATORVASTATIN 10 MG TABLET PO SCH ×2 (21:32→21:46)
--- NOTE | 2019-02-28 22:00 | NUR ---
ICU/RN NOTES REPOSITIONED AND TURNED.MAINTAINING SAT OF 95-96 %.PASSIVE AND WITH FLAT AFFECT.
[2019-03-01] VITALS (35 sets, daily range): BP systolic 119–182; BP diastolic 49–86
--- NOTE | 2019-03-01 03:30 | NUR ---
ICU/RN NOTES COMPLETE BED BATH DONE,PT LETHARGIC BUT AROUSES EASILY.NON-VERBAL,LOOKS AT SPEAKER WHEN SPOKEN TO,DOES NOT FOLLOW COMMANDS.TRANSFERRED TO A ROB BED ISOFLEX MACHINE KEEPS ALARMING.
[2019-03-01] MEDS: ZOSYN IVPB 2.25 G in IV D5W 50ml IV SCH ×4 (03:37→21:34)
[2019-03-01] MEDS: VANCOMYCIN 500 MG in IV D5W 100 ML IV SCH (04:10)
[2019-03-01 04:28] LABS: BASOPHILS # (AUTO) 0.1 /CMM (0.0-0.2); BASOPHILS % (AUTO) 0.6 % (0.0-2.0); EOSINOPHILS % (AUTO) 2.3 % (0.0-6.0); HEMATOCRIT 33 % (39-51); HEMOGLOBIN 10.7 g/dL (13.5-17.5); LYMPHOCYTES % (AUTO) 10.9 % (20.0-44.0); MEAN CORPUSCULAR HGB CONC 33 g/dl (31.0-36.0); MEAN CORPUSCULAR VOLUME 70 fL (80-96); MONOCYTES # (AUTO) 0.5 /CMM (0.1-1.30); MONOCYTES % (AUTO) 5.5 % (2.0-12.0); NEUTROPHILS # (AUTO) 7.5 /CMM (1.8-8.9); NEUTROPHILS % (AUTO) 80.7 % (43.0-81.0); PLATELET COUNT (AUTO) 114 /CMM (150-450); RED BLOOD CELL COUNT(AUTO) 4.68 MIL/uL (4.5-6.0); WHITE BLOOD COUNT (AUTO) 9.3 K/uL (4.3-11.0)
[2019-03-01 04:39] LABS: CALCIUM, SERUM 7.8 mg/dL (8.5-10.1); CREATININE 0.7 mg/dL (0.6-1.3); MAGNESIUM 1.7 mg/dL (1.8-2.4); PHOSPHORUS 1.6 mg/dL (2.5-4.9); POTASSIUM 2.9 mmol/L (3.5-5.1)
--- NOTE | 2019-03-01 06:00 | NUR ---
ICU/RN NOTES NEURO STATUS IS FROM DROWSY TO LETHARGY.VITAL SIGNS STABLE.MONITOR NSR.MAINTAINING SATURATION OF 95-96%ON 2LN/C.WILL ENDOSE TO DAY SHIFT.
--- NOTE | 2019-03-01 07:20 | NUR ---
RECEIVED PATIENT OPENS EYES TO SLIGHT STIMULI AND MOVES TO LOCALIZED PAIN. ON NC 2L WITHOUT DISTRESS, NO SOB, DIFFICULTY BREATHING AND FLACC 0. GAMBOA CATH TO GRAVITY AND PATENT. IV SITES C/D/I/P WITH IVF PER ORDER. TELE NSR. SKIN, SAFETY, ASPIRATION PRECAUTIONS IN PLACE AND WILL MONITOR.
[2019-03-01] MEDS: LACTOBACILLUS RHAMNOSUS GG 1 EACH CAP.SPRINK PO SCH ×2 (08:39→16:49)
[2019-03-01] MEDS: ESCITALOPRAM OXALATE (10 MG) 10 MG TABLET PO SCH (08:39)
[2019-03-01] MEDS: MEMANTINE HCL 5 MG TABLET PO SCH ×2 (08:40→16:49)
[2019-03-01] MEDS ORDERED: K PHOS NEUTRAL 250 MG TABLET PO ONE (09:00)
[2019-03-01] MEDS: KEPPRA IV SCH (09:18)
[2019-03-01] MEDS: NS 0.9% IV SCH (09:18)
--- NOTE | 2019-03-01 09:18 | NUR ---
PATIENT TOLERATED PO MEDICATIONS WITH FOOD THIS AM HOWEVER SHORTLY AFTER STARTED FALLING ASLEEP AND HOLDING FOOD IN HIS MOUTH. HOLDING ALL OTHER PO MEDICATIONS AND FOOD. SWALLOW EVAL THERAPIST SHERRIE AT BEDSIDE AND RECC NO PO INTAKE WELL AND POSSIBLE VIDEO SWALLOW IF MD DESIRES.
[2019-03-01] MEDS ORDERED: POTASSIUM CHLORIDE 20 MEQ POWDER PACKET NG SCH (09:30)
--- NOTE | 2019-03-01 09:36 | NUR ---
WOUND CARE CONSULT: RECEIVED WOUND CONSULT. PT NOTED TO HAVE RT MEDIAL FOOT SCARRING AND DISCOLORATION/SKIN STAINING TO SACRAL/BUTTOCKS AREA. RECOMMENDATIONS MADE FOR SKIN PROTECTION. DISCUSSED WITH NURSING STAFF. WILL SEE PRN. MCCLAIN IN AGREEMENT WITH PLAN OF CARE. CURRENT RYAN SCORE IS 14.
[2019-03-01] MEDS: POTASSIUM CL. PREMIX PERIPHER. 50 ML IV SCH ×4 (10:28→14:16)
[2019-03-01] MEDS: Magnesium 1GM/D5W 100ML PREMIX 100 ML IV SCH ×2 (10:28→11:33)
[2019-03-01] MEDS: IV D5W 1,000 ML IV PRN ×2 (10:29→22:15)
--- NOTE | 2019-03-01 10:30 | NUR ---
DR TRUJILLO AT BEDSIDE. AWARE OF PATIENT BUE SWELLING AND RIGHT HOTTER THAN LEFT ARM; PENDING BUE VENOUS TO R/O DVT
[2019-03-01] MEDS ORDERED: VANCOMYCIN 0.75 GM in IV D5W 250 ML IV SCH (16:00)
[2019-03-01] MEDS: ASPIRIN EC 81 MG TABLET.DR PO SCH (16:49)
[2019-03-01] MEDS: DOCUSATE SODIUM 100 MG CAPSULE PO SCH (16:50)
--- NOTE | 2019-03-01 19:00 | NUR ---
RECEIVED PATIENT IN NO ACUTE DISTRESS IN BED. PATIENT IS LETHARGIC. PATIENT IS ON O2 VIA NC AT 2LPM AND TOLERATING WELL. PATIENT IS ON TELEMETRY WITH SINUS RHYTHM ON THE MONITOR. PATIENT HAS LEFT AC 20G IV THAT IS CLEAN DRY INTACT AND PATENT WITH SALINE LOCK. PATIENT HAS RIGHT AC 20G IV THAT IS CLEAN DRY INTACT AND PATENT WITH D5W AT 75 ML/HR. BED IN LOW LOCK POSITION WITH RAILS UP X 2. CALL LIGHT WITHIN REACH AND ALL SAFETY MEASURES ENSURED AND CARRIED OUT. WILL CONTINUE TO MONITOR PATIENT.
--- NOTE | 2019-03-01 19:26 | NUR ---
AM ELISHA HARGROVE CONTACTED DR. ARREOLA FOR BLOOD PRESSURE AT 181/86. RECEIVED ORDERS FROM DR. ARREOLA FOR HYDRALAZINE 10MG (IV) Q4H FOR SBP >160. READBACK ORDERS PERFORMED AND CARRIED OUT.
[2019-03-01] MEDS: hydrALAZINE HCL IV 20 MG VIAL IV PRN (19:45)
[2019-03-01] MEDS: LEVETIRACETAM SOL (5 ML) 100 MG/ML UDC GT SCH (21:00)
[2019-03-01] MEDS: ATORVASTATIN 10 MG TABLET PO SCH (21:29)
[2019-03-02] VITALS (11 sets, daily range): BP systolic 122–158; BP diastolic 62–82
--- NOTE | 2019-03-02 01:30 | NUR ---
GAVE REPORT TO ADALI Thacker RN FOR CONTINUITY OF CARE.
--- NOTE | 2019-03-02 02:00 | NUR ---
TRANSPORTED PATIENT PER ACLS PROTOCOL TO 3W TELE UNIT FOR CONTINUITY OF CARE. PATIENT REMAINED IN NO ACUTE DISTRESS IN BED. PATIENT DID NOT HAVE ANY SIGNIFICANT CHANGE IN CONDITION DURING SHIFT. ALL NEEDS MET, ALL ORDERS CARRIED OUT. ENDORSED CARE TO 3W ELISHA BRO FOR CONTINUITY OF CARE.
--- NOTE | 2019-03-02 02:01 | NUR ---
ELISHA ACCEPTING TRANSFER REPORT. REPORT RECIEVED FROM RAMAN TELLO FROM ICU. PATIENT TRANSPORTED TO 3W ROOM 309-1 ON TELEMETRY FOR SEPSIS SECOND TO PNA. MECHE IS IS SR IN 70'S ON THE MONITOR. TELE UNIT. PATIENT REMAINED IN NO ACUTE DISTRESS IN BED. BED ALRM ACTIVATED AND SRX2. WILL CONT TO MONITOR.
[2019-03-02] MEDS: ZOSYN IVPB 2.25 G in IV D5W 50ml IV SCH ×4 (04:14→21:05)
--- NOTE | 2019-03-02 06:24 | NUR ---
RN CLOSING NOTES PATIENT IN BED. PATIENT AWAKENS TO LIGHT PAINFUL STIMULI VIA STERNAL RUB. PATIENT OPENS EYES, BUT DOES NOT VERBALLY SPEEK TO MAKE NEEDS KNOWN. PATIENT REPOSTIONED EVERY 2 OHOURS AND ASSISTED WITH COMPLETE SAFETY PRECAUTIONS IN PLACE BED DOWN LOCKED SIDE RAILS X2. WILL CONT TO MONITOR AND ENDORSE TO NEXT SHFTI
[2019-03-02 07:06] LABS: BASOPHILS % (AUTO) 0.5 % (0.0-2.0); EOSINOPHILS % (AUTO) 1.8 % (0.0-6.0); HEMATOCRIT 36 % (39-51); HEMOGLOBIN 11.3 g/dL (13.5-17.5); LYMPHOCYTES % (AUTO) 14.6 % (20.0-44.0); MEAN CORPUSCULAR HGB CONC 31 g/dl (31.0-36.0); MEAN CORPUSCULAR VOLUME 70 fL (80-96); MONOCYTES # (AUTO) 0.6 /CMM (0.1-1.30); MONOCYTES % (AUTO) 8.8 % (2.0-12.0); NEUTROPHILS # (AUTO) 4.8 /CMM (1.8-8.9); NEUTROPHILS % (AUTO) 74.3 % (43.0-81.0); PLATELET COUNT (AUTO) 134 /CMM (150-450); RED BLOOD CELL COUNT(AUTO) 5.16 MIL/uL (4.5-6.0); WHITE BLOOD COUNT (AUTO) 6.5 K/uL (4.3-11.0)
--- NOTE | 2019-03-02 07:15 | NUR ---
MS RN NOTES PATIENT IN BED EYES CLOSED, AROUSE TO TACTILE STIMULI. NO ACUTE DISTRESS NOTED, BREATHING UNLABORED. IV ACCESS PATENT AND INTACT, NO REDNESS OR SWELLING NOTED. SAFETY MEASURES IN PLACE. CALL LIGHT WITHIN REACH WILL CONTINUE TO MONITOR ACCORDINGLY.
[2019-03-02 07:31] LABS: CALCIUM, SERUM 7.4 mg/dL (8.5-10.1); CREATININE 0.6 mg/dL (0.6-1.3); MAGNESIUM 2.1 mg/dL (1.8-2.4); PHOSPHORUS 2.2 mg/dL (2.5-4.9); POTASSIUM 2.9 mmol/L (3.5-5.1)
[2019-03-02] MEDS ORDERED: NEUTRA PHOS 1 POWD.PACKET PO ONE (09:30)
--- NOTE | 2019-03-02 09:45 | NUR ---
MS RN NOTES SWALLOW EVALUATION DONE BY MARGO AT BEDSIDE, PATIENT CAN SWALLOW OK WITH PUREED NECTAR THICK LIQUID.
[2019-03-02] MEDS: MEMANTINE HCL 5 MG TABLET PO SCH ×2 (09:51→17:07)
[2019-03-02] MEDS: LACTOBACILLUS RHAMNOSUS GG 1 EACH CAP.SPRINK PO SCH ×2 (09:51→17:06)
[2019-03-02] MEDS: LEVETIRACETAM SOL (5 ML) 100 MG/ML UDC GT SCH ×2 (09:52→21:06)
[2019-03-02] MEDS: ESCITALOPRAM OXALATE (10 MG) 10 MG TABLET PO SCH (09:52)
[2019-03-02] MEDS ORDERED: VALSARTAN 40 MG TABLET PO SCH (11:30)
[2019-03-02] MEDS ORDERED: POTASSIUM CHLORIDE 20 MEQ TAB.PRT.SR PO ONE (11:30)
[2019-03-02] MEDS: DOCUSATE SODIUM 100 MG CAPSULE PO SCH (17:07)
[2019-03-02] MEDS: ASPIRIN EC 81 MG TABLET.DR PO SCH (17:07)
--- NOTE | 2019-03-02 19:00 | NUR ---
MS RN NOTES PATIENT IN BED AWAKE. NO ACUTE DISTRESS NOTED, BREATHING UNLABORED. IV ACCESS PATENT AND INTACT, NO REDNESS OR SWELLING NOTED.DUE MEDICATIONS GIVEN, NO ASE NOTED. NEEDS ATTENDED AND ANTICIPATED. KEPT CLEAN DRY AND COMFORTABLE. SAFETY MEASURES IN PLACE. CALL LIGHT WITHIN REACH. WILL ENDORSE TO NIGHT FOR CONTINUITY OF CARE.
--- NOTE | 2019-03-02 19:30 | NUR ---
RECEIVED PATIENT IN BED AWAKE. NONVERBAL. RESPONSIVE TO VOICE AND TOUCH. NO ACUTE DISTRESS NOTED. NO SIGNS OF PAIN NOTED. IV SITES PATENT, INTACT; FLUSHED. GAMBOA CATH PATENT, INTACT; DRAINING CLEAR YELLOW URINE. ON LOW BED WITH BILATERAL UPPER SIDE RAILS UP. CALL HARVEY WITHIN EASY REACH. WILL CONTINUE TO MONITOR.
[2019-03-02] MEDS: ATORVASTATIN 10 MG TABLET PO SCH (21:06)
[2019-03-03] MEDS: ZOSYN IVPB 2.25 G in IV D5W 50ml IV SCH ×2 (04:26→09:11)
--- NOTE | 2019-03-03 06:00 | NUR ---
PATIENT ASLEEP, EASILY AROUSABLE. RESPIRATIONS EVEN. NO SIGNS OF PAIN NOTED. DUE MEDS GIVEN WITH NO ASE NOTED. KEPT CLEAN AND DRY. TURNED AND REPOSITIONED Q 2 HOURS. SAFETY PRECAUTIONS AND COMFORT MEASURES IN PLACE. WILL GIVE REPORT TO DAY SHIFT FOR CONTINUITY OF CARE.
[2019-03-03 06:32] LABS: BASOPHILS # (AUTO) 0.1 /CMM (0.0-0.2); BASOPHILS % (AUTO) 0.9 % (0.0-2.0); EOSINOPHILS % (AUTO) 2.6 % (0.0-6.0); HEMATOCRIT 33 % (39-51); HEMOGLOBIN 10.3 g/dL (13.5-17.5); LYMPHOCYTES # (AUTO) 1.2 /CMM (0.8-4.8); LYMPHOCYTES % (AUTO) 14.9 % (20.0-44.0); MEAN CORPUSCULAR HGB CONC 32 g/dl (31.0-36.0); MEAN CORPUSCULAR VOLUME 69 fL (80-96); MONOCYTES # (AUTO) 0.9 /CMM (0.1-1.30); NEUTROPHILS # (AUTO) 5.5 /CMM (1.8-8.9); NEUTROPHILS % (AUTO) 70.6 % (43.0-81.0); PLATELET COUNT (AUTO) 162 /CMM (150-450); RED BLOOD CELL COUNT(AUTO) 4.76 MIL/uL (4.5-6.0); WHITE BLOOD COUNT (AUTO) 7.8 K/uL (4.3-11.0)
[2019-03-03 06:52] LABS: BILIRUBIN,TOTAL 0.5 mg/dL (0.2-1.0); CALCIUM, SERUM 7.8 mg/dL (8.5-10.1); CREATININE 0.7 mg/dL (0.6-1.3); MAGNESIUM 1.7 mg/dL (1.8-2.4); PHOSPHORUS 2.5 mg/dL (2.5-4.9); TOTAL PROTEIN, SERUM 5.9 g/dL (6.4-8.2)
[2019-03-03 07:00] VITALS: BP 153/61
--- NOTE | 2019-03-03 07:53 | NUR ---
MS RN OPENING NOTES RECEIVED PATIENT IN BED RESTING COMFORTABLY IN MODERATE HIGH BACK REST. EASILY AROUSABLE. NO SIGNS OF DISTRESS NOTED AT THIS TIME. IV ACCESS ON RIGHT AC#20 AND LEFT AC#20, SL. PATENT AND INTACT. ON GAMBOA CATHETER, PATENT AND INTACT, DRAINING WELL. SAFETY MEASURES IN PLACE, BED IN LOW LOCKED POSITION WITH SIDE RAILS UP X2. CALL LIGHT WITHIN REACH. WILL CONTINUE TO MONITOR.
[2019-03-03] MEDS ORDERED: POTASSIUM CHLORIDE 20 MEQ TAB.PRT.SR PO ONE (08:00)
[2019-03-03] MEDS: ESCITALOPRAM OXALATE (10 MG) 10 MG TABLET PO SCH (08:45)
[2019-03-03] MEDS: MEMANTINE HCL 5 MG TABLET PO SCH (08:46)
[2019-03-03] MEDS: LACTOBACILLUS RHAMNOSUS GG 1 EACH CAP.SPRINK PO SCH (08:46)
[2019-03-03] MEDS: LEVETIRACETAM SOL (5 ML) 100 MG/ML UDC GT SCH (08:47)
[2019-03-03] MEDS ORDERED: VALSARTAN 40 MG TABLET PO SCH (09:00)
[2019-03-03] MEDS ORDERED: PIPE3.379 IV (11:49)
--- NOTE | 2019-03-03 13:51 | NUR ---
RN NOTES REPORT GIVEN TO ELISHA SALTER REGARDING PATIENT TRANSFER TO SNF.
[2019-03-03 14:19] VITALS: BP 176/90
[2019-03-03] MEDS: hydrALAZINE HCL IV 20 MG VIAL IV PRN (14:19)
--- NOTE | 2019-03-03 14:55 | NUR ---
RN DISCHARGED NOTES PATIENT DISCHARGED IN STABLE CONDITION. EASILY AROUSABLE, NON VERBAL. V/S TAKEN, STABLE AND RECORDED. PATIENT'S IV NOT REMOVED DUE TO IV ANTIBIOTIC FOR 3 MORE DAYS TO THE SNF. SKIN ASSESSMENT AND PICTURES DONE AND FILED ON CHART. NAME ARM BAND REMOVED. ALL BELONGINGS CHECKED AND SIGNED. HEALTH TEACHINGS/DISCHARGED INSTRUCTIONS GIVEN. PATIENT LEFT UNIT AT 1450 WITH NO ACUTE SIGNS OF DISTRESS. PATIENT LEFT UNIT WITH 2 AMBULANCE STAFF. CHARGE NURSE MADE AWARE OF DISCHARGED.
== END 2019-03-03 15:00 | DRG 871 ==
LOC: ER 16:07 → TELE 18:02 → ICU 02-26 02:33 → TELE 03-02 01:59 → MED 03-02 08:02
PROVIDERS: ADMIT Internal Medicine; ATTEND Student in an Organized Health Care Education/Training Program
PROC: 5A09457 Assistance with Respiratory Ventilation, 24-96 Consecutive Hours, Continuous Positive Airway Pressure (ICD-10-PCS; principal; 2019-02-26)
DX: A41.9 Sepsis, unspecified organism (principal); G93.41 Metabolic encephalopathy; N17.0 Acute kidney failure with tubular necrosis; J96.01 Acute respiratory failure with hypoxia; J15.6 Pneumonia due to other Gram-negative bacteria; J69.0 Pneumonitis due to inhalation of food and vomit; E87.2 Acidosis; E87.0 Hyperosmolality and hypernatremia; L03.114 Cellulitis of left upper limb; L03.113 Cellulitis of right upper limb; D69.6 Thrombocytopenia, unspecified; E78.5 Hyperlipidemia, unspecified; E83.42 Hypomagnesemia; E83.51 Hypocalcemia; K21.9 Gastro-esophageal reflux disease without esophagitis; E86.0 Dehydration; Z86.73 Personal history of transient ischemic attack (TIA), and cerebral infarction without residual deficits; I25.10 Atherosclerotic heart disease of native coronary artery without angina pectoris; G40.909 Epilepsy, unspecified, not intractable, without status epilepticus; E11.9 Type 2 diabetes mellitus without complications; D64.9 Anemia, unspecified; I50.9 Heart failure, unspecified; I11.0 Hypertensive heart disease with heart failure; E86.1 Hypovolemia; E87.6 Hypokalemia; F03.90 Unspecified dementia, unspecified severity, without behavioral disturbance, psychotic disturbance, mood disturbance, and anxiety; N40.0 Benign prostatic hyperplasia without lower urinary tract symptoms; Z79.82 Long term (current) use of aspirin
CPT/HCPCS: 36415; 36600; 71045-TC; 76770-TC; 80048-TC; 80053-TC; 80076-TC; 80202-TC; 81000-TC; 82570-TC; 82803-TC; 82962-TC; 83605-TC; 83735-TC; 84100-TC; 84300-TC; 84484-TC; 85025-TC; 85730-TC; 87040-TC; 87081-TC; 87086-TC; 92526; 92611-TC; 94660; 94760-TC; 94799-TC; 97112-TC; 97530-TC; G0378; J0360; J1953; J2543; J3370; J3475; J3480; J3490; J7030; J7040; J7042; J7050; J7060; J7070

== ENCOUNTER 2019-05-01 08:55 | Inpatient (IN) | payer MEDICARE, MEDICAID ==
[~2019-05-01] VITALS: Ht 165.1 cm; Wt 47.6 kg
[~2019-05-01 08:55] MED LIST changes: +ACET-2605 PO; +BISA10SU11 RC; +DOCU-141 PO; +MAGN400O6 PO; +NA P133E RC; +PIPE3.379 IV
--- NOTE | 2019-05-01 09:02 | NUR ---
Patient intubated @ 0902 ,Fr# 7.5, lip line 21, noted bilateral breath sound ,place monitor vent , noted no family @ bedside
[2019-05-01] MEDS ORDERED: PROPOFOL 100 ML ONE (09:05)
--- NOTE | 2019-05-01 09:12 | NUR ---
Annemarie james in EDM - 05/01/19 at 0923 by YAS Patient BIB EMS from [facility] patient 84 RA Sob
--- NOTE | 2019-05-01 09:14 | NUR ---
Patient non responsive no pulse begin CPR given EPi ,0915 200 joules no pulse continu CPR ,0917 EPi,0917 bicarb ,0920 Epi given continue cpr ,check for pulsed ,pulse palpable continue to monitor
[2019-05-01] MEDS ORDERED: VANCOMYCIN 1 GM in IV D5W 250 ML IV ONE (09:30)
[2019-05-01] MEDS ORDERED: PIPERACILLIN /TAZOBACTAM 3.375 G in IV D5W 50 ML IV ONE (09:30)
[2019-05-01] MEDS ORDERED: ETOMIDATE 2 MG/ML VIAL IV ONE ×2 (09:30→11:36)
[2019-05-01] MEDS ORDERED: ROCURONIUM BROMIDE 100 MG/10 ML VIAL IV ONE (09:30)
[2019-05-01] MEDS ORDERED: IV NS 0.9% 1,000 ML BAG IV ONE (09:30)
[2019-05-01 09:38] LABS: BASOPHILS # (AUTO) 0.1 /CMM (0.0-0.2); BASOPHILS % (AUTO) 0.5 % (0.0-2.0); EOSINOPHILS % (AUTO) 0.3 % (0.0-6.0); HEMATOCRIT 42 % (39-51); LYMPHOCYTES # (AUTO) 4.3 /CMM (0.8-4.8); LYMPHOCYTES % (AUTO) 35.4 % (20.0-44.0); MEAN CORPUSCULAR HGB CONC 29 g/dl (31.0-36.0); MEAN CORPUSCULAR VOLUME 75 fL (80-96); MONOCYTES # (AUTO) 0.2 /CMM (0.1-1.30); MONOCYTES % (AUTO) 1.2 % (2.0-12.0); NEUTROPHILS # (AUTO) 7.7 /CMM (1.8-8.9); NEUTROPHILS % (AUTO) 62.6 % (43.0-81.0); PLATELET COUNT (AUTO) 147 /CMM (150-450); RED BLOOD CELL COUNT(AUTO) 5.61 MIL/uL (4.5-6.0); WHITE BLOOD COUNT (AUTO) 12.3 K/uL (4.3-11.0)
--- NOTE | 2019-05-01 09:50 | NUR ---
Patient PEA continue CPR please see code sheet
[2019-05-01 09:55] LABS: ALANINE AMINOTRANSFERASE 29 U/L (12-78); ALBUMIN 2.6 g/dL (3.4-5.0); ALKALINE PHOSPHATASE 58 U/L (46-116); ASPARTATE AMINOTRANSFERASE 51 U/L (15-37); BILIRUBIN,DIRECT 0.2 mg/dL (0.0-0.2); BILIRUBIN,TOTAL 0.6 mg/dL (0.2-1.0); CALCIUM, SERUM 8.9 mg/dL (8.5-10.1); CARBON DIOXIDE 17 mmol/L (21-32); CHLORIDE 123 mmol/L (98-107); CREATININE 3.6 mg/dL (0.6-1.3); GLUCOSE 161 mg/dL (74-106); POTASSIUM 3.8 mmol/L (3.5-5.1); TOTAL PROTEIN, SERUM 7.6 g/dL (6.4-8.2); UREA NITROGEN, BLOOD 67 mg/dL (7-18)
[2019-05-01 09:56] LABS: SODIUM SERUM 170 mmol/L (136-145)
[2019-05-01] MEDS ORDERED: ACETAMINOPHEN 650 MG/SUPP.RECT RC ONE ×2 (10:00→10:18)
--- NOTE | 2019-05-01 10:05 | NUR ---
PANEL ON-CALL PAGED
[2019-05-01 10:18] LABS: APPEARANCE,URINE Cloudy (CLEAR); BILIRUBIN,URINE MODERATE (NEGATIVE); BLOOD, URINE Large Ery/uL (NEGATIVE); KETONES,URINE Trace (NEGATIVE); LEUKOCYTE ESTERASE ,URINE Negative (NEGATIVE); NITRITE, URINE Negative (NEGATIVE); PH,URINE 5.5 (5.0-8.0); PROTEIN,URINE 30 mg/dl (NEGATIVE); UGLUCOSE Negative (NEGATIVE); UROBILINOGEN,URINE 0.2 EU/dL (0.2)
[2019-05-01 10:20] LABS: COLOR,URINE Dark Yellow (YELLOW)
[2019-05-01 10:25] LABS: ABG OXYGEN SATURATION 98.8 % (92.0-98.5); ABG PCO2 45.8 mmHg (35.0-45.0); ABG PH 6.989 (7.350-7.450); ABG PO2 278.6 mmHg (75.0-100.0); AaDO2 388.6 mmHg; COHb 0.4 % (0.5-1.5); MetHb 0.7 % (0.0-1.5); O2Hb 97.7 % (94.0-97.0); PEEP,BG 5 cm H2O; SITE, ABG Left Brachial; VENT MODE, BG AC MODE; VT, ABG 450 mL
[2019-05-01 10:29] LABS: BACTERIA,URINE Few /HPF (None Seen); HYALINE CASTS, URINE 0-2 /LPF (None Seen); RBC,URINE 50-80 /HPF (0-2); SQUAMOUS EPITHELIAL CELL,UR Few /HPF (None Seen)
[2019-05-01] MEDS ORDERED: NOREPINEPHRINE 8 MG in IV D5W 500 ML IV ONE ×2 (10:30→11:00)
[2019-05-01] MEDS ORDERED: ZOLPIDEM TARTRATE 5 MG TABLET PO PRN (10:30)
[2019-05-01] MEDS ORDERED: Z GUARD REMEDY 2 OZ OINT TP PRN (10:30)
[2019-05-01] MEDS ORDERED: NOREPINEPHRINE 8 MG in IV D5W 500 ML IV PRN ×2 (10:30→11:00)
[2019-05-01] MEDS ORDERED: ACETAMINOPHEN 325 MG TABLET PO PRN (10:30)
[2019-05-01] MEDS ORDERED: ONDANSETRON HCL/PF 4 MG/2 ML VIAL IVP PRN (10:30)
[2019-05-01] MEDS ORDERED: MAG HYDROX/AL HYDROX/SIMETH 30 ML UDC PO PRN (10:30)
[2019-05-01] MEDS ORDERED: MAGNESIUM HYDROXIDE 30 ML UDC PO PRN (10:30)
--- NOTE | 2019-05-01 10:36 | NUR ---
Blood pressure low 41/27 md aware ,prep central line
--- NOTE | 2019-05-01 10:42 | NUR ---
Patient code Epi # 1 amp
--- NOTE | 2019-05-01 10:55 | NUR ---
MILTON HINDS PHONE CIRCUIT OPERATOR CALLED,DNR/COMFORT MEASURES PER FAMILY
--- NOTE | 2019-05-01 11:30 | NUR ---
Trasfer patient to ICU 252 ACLS transfer gurney to bed Levophep 20 mcg drip in fusing well to Rt Groin central line patient prio to transfer BP 78 /56 hr129 in tyhe monitor and palpable transfer to ICU 2 hand touch up painter and Rt .,RN
--- NOTE | 2019-05-01 11:30 | NUR ---
RN NOTES RECEIVED REPORT FROM ELISHA VALDIVIA FOR PATIENT COMING IN FOR RESPIRATORY FAILURE, UNDER THE CARE OF DEIRDRE HINDS. ROOM PREPARED. BED ZEROED OUT. AWAITING PATIENT'S ARRIVAL
[2019-05-01] MEDS ORDERED: ROCURONIUM BROMIDE 50 MG/5 ML IV ONE (11:36)
--- NOTE | 2019-05-01 11:45 | NUR ---
RN NOTES RECEIVED PATIENT FROM ER, INTUBATED, ON VALVE AG MASK WHILE ON TRANSPORT, UNRESPONSIVE. PATIENT TRANSFERRED TO BED. ATTACHED TO MONITOR WITH HR ON THE 90S. BLOOD PRESSURE NOTED AT 34/29MMHG INITIALLY. LEVOPHED RUNNING AT 20MEQS AT THIS TIME, WILL CONFIRM AND CHECK ORDER, WILL ADJUST ACCORDINGLY. SKIN ASSESSMENT DONE. PATIENT CLEANED AND MADE COMFORTABLE IN BED. SAFETY MEASURES PUT IN PLACE. BED IN LOW AND LOCKED POSITION. SRX2 RAISED. CALL LIGHT PLACED WITHIN REACH, WILL CONTINUE TO MONITOR PATIENT ACCORDINGLY AND ANTICIPATE NEEDS
[2019-05-01] MEDS ORDERED: Sodium Bicarbonate 150 MEQ in IV NS 0.9% 1,000 ML IV PRN (12:00)
[2019-05-01] MEDS ORDERED: MEROPENEM 500 MG in IV NS 0.9% 50 ML IV ONE (12:00)
--- NOTE | 2019-05-01 12:00 | NUR ---
RN NOTES CALLED JENNA (SON) TO INFORMED HIM ABOUT PATIENT'S CONDITION. BLOOD PRESSURE IS LOW DESPITE MEDICATIONS, ALSO CLARIFIED SON'S DECISION ON PUTTING PATIENT ON COMFORT MEASURES. INFORMED HIM THAT USUALLY, MEDICATION ARE NOT GIVEN AT THIS STATUS AND THAT WE ONLY WAIT FOR THE PATIENT TO BECOME ASYSTOLIC ON NATURAL WAYS. SON THEN CLARIFIED AND ASKED MEDICATION TO BE STOPPED. REQUEST CONFIRMED WITH ELISHA ALDRICH
--- NOTE | 2019-05-01 12:10 | NUR ---
RN NOTES PATIENT ASYSTOLE ON THE MONITOR. PULSES CANT BE PALPATED, NO EVIDENT RISE AND FALL OF CHEST, BLOOD PRESSURE UNAPPRECIATED. VERIFIED WITH 2 NURSES, FAMILY INFORMED (SPOKE TO SHAHRZAD- SON), MADE AWARE
--- NOTE | 2019-05-01 12:10 | NUR ---
RT SHIFT REPORT, PT. 84 Y OLD MALE REC @ 0902 IN ER ROOM # 8 NON RESPONSIVE ASSISTED ER DRSuki ORALLY INTUBATED BY DR. ANDINO @ 0905 ETT # 7.5 @ 21 CM LIP LINE ON VENT WITH NOTED SETTINGS. VENT PLUGGED INTO RED OUT LET. AMBU BAG AT BEDSIDE. WILL CONTINUE TO MONITOR CLOSELY. EQUAL CHEST RISE NOTED B/S BILATERALLY RALES SUX'D FOR MINIMAL AMT OF YELLOW THICK SECRETIONS, @0914 NO PULSE CPR/AMBU BAG PER ACLS PROTOCOL PERFORMED @ 0921 PULSE BACK @0952 NO PULSE CPR/AMBU BAG PER ACLS PROTOCOL PERFORMED @ 0956 PULSE BACK @1042 NO PULSE CPR/AMBU BAG PER ACLS PROTOCOL PERFORMED @ 1046 PULSE BACK POST ABG RESULTS @1050 RR INCREASED TO 22 AND POST X-RAY REVIEW ETT ADJUSTED (ADVANCED 3CM ) SECURED AT 24CM LIP LINE PER DR. ANDINO, @1130 PT. MOVE TO ICU AND REPORT GIVEN. @1210 PT. COMFORT MEASURES ONLY Addendum: 05/01/19 at 1733 by SHANEKA BLAIR RT Amended: Links added.
[2019-05-01 12:26] VITALS: BP 75/45
--- NOTE | 2019-05-01 12:30 | NUR ---
RN NOTES 1230: CALLED [employer], SPOKE TO MOHINDER WHO INITIALLY GAVE ME A 1250: RECEIVED PHONE CALL FOR [employer] AND SPOKE TO BASIM, PER THE LATTER THEY WONT BE PURSUING WITH THE CASE 1400: CALLED PAPER CORE MACHINE OPERATOR'S OFFICE, SPOKE TO CAMPBELL WHO CLAIMED THAT THIS IS NOT A PAPER CORE MACHINE OPERATOR'S CASE
[2019-05-01] MEDS ORDERED: EPINEPHRINE (1:10,000) SYRINGE 1 MG/10 ML DISP.SYRIN IVP ONE (13:29)
--- NOTE | 2019-05-01 14:20 | NUR ---
RN NOTES TRANSFERRED PATIENT INT [facility]
[2019-05-01] MEDS ORDERED: MEROPENEM 500 MG in IV NS 0.9% 100 ML IV SCH (21:00)
== END 2019-05-01 12:15 | disposition expired | DRG 871 ==
LOC: ER 08:55 → ICU 11:24
PROVIDERS: ADMIT Nurse Practitioner Acute Care; ATTEND Nurse Practitioner Acute Care
PROC: 5A1935Z Respiratory Ventilation, Less than 24 Consecutive Hours (ICD-10-PCS; principal; 2019-05-01)
PROC: 0BH17EZ Insertion of Endotracheal Airway into Trachea, Via Natural or Artificial Opening (ICD-10-PCS; 2019-05-01)
PROC: 5A12012 Performance of Cardiac Output, Single, Manual (ICD-10-PCS; 2019-05-01)
PROC: 06HY33Z Insertion of Infusion Device into Lower Vein, Percutaneous Approach (ICD-10-PCS; 2019-05-01)
DX: A41.9 Sepsis, unspecified organism (principal); J96.01 Acute respiratory failure with hypoxia; Z66 Do not resuscitate; Z51.5 Encounter for palliative care; R65.21 Severe sepsis with septic shock; J18.9 Pneumonia, unspecified organism; N17.0 Acute kidney failure with tubular necrosis; G93.41 Metabolic encephalopathy; I21.A1 Myocardial infarction type 2; E87.1 Hypo-osmolality and hyponatremia; I46.9 Cardiac arrest, cause unspecified; Z86.73 Personal history of transient ischemic attack (TIA), and cerebral infarction without residual deficits; I25.10 Atherosclerotic heart disease of native coronary artery without angina pectoris; I11.0 Hypertensive heart disease with heart failure; N40.0 Benign prostatic hyperplasia without lower urinary tract symptoms; K21.9 Gastro-esophageal reflux disease without esophagitis; F32.9 Major depressive disorder, single episode, unspecified; F29 Unspecified psychosis not due to a substance or known physiological condition; R57.1 Hypovolemic shock; E86.1 Hypovolemia; G40.909 Epilepsy, unspecified, not intractable, without status epilepticus; E78.5 Hyperlipidemia, unspecified; D64.9 Anemia, unspecified; I50.9 Heart failure, unspecified; I48.91 Unspecified atrial fibrillation
CPT/HCPCS: 36415; 36600; 71045-TC; 80048-TC; 80076-TC; 81000-TC; 82803-TC; 83605-TC; 83735-TC; 84484-TC; 85025-TC; 85730-TC; 87040-TC; 87070-TC; 87081-TC; 87086-TC; 87186-TC; 93307-TC; 94002; 94640-TC; 99082-TC; A4216; G0378; J0171; J2185; J2543; J3370; J3490; J7030; J7060